=== PATIENT | female | born 1945 | race Caucasian/White ===

== ENCOUNTER 2022-09-24 06:17 | Emergency (ER) | payer MEDICARE, SELFPAY ==
[2022-09-24] VITALS (155 sets, daily range): BP systolic 72–197; BP diastolic 36–86; PULSE 40–73; RESP 11–47; TEMP 27–37.3; O2SAT 84–100; BMI 48.8
--- NOTE | 2022-09-24 07:04 | DI.RAD.S_ITS ---
PROCEDURE: XR CHEST 1V INDICATIONS: short of breath TECHNIQUE: One view of the chest was acquired. COMPARISON: None. FINDINGS: Surgical changes and devices: None. Lungs and pleura: Patchy bibasilar opacities more pronounced on the right. No focal consolidation. No pneumothorax. No substantial pleural effusion seen. Mediastinum: Mediastinal contours appear normal. Heart size is at the upper limits of normal, likely related to portable technique. Bones and chest wall: No suspicious bony lesions. Overlying soft tissues appear unremarkable. IMPRESSION: Patchy bibasilar opacities more pronounced on the right. Findings may represent atelectasis although early developing airspace disease not excluded. Dictated by: Jose Manuel Raphael M.D. on 09/24/2022 at 7:49 Approved by: Jose Manuel Raphael M.D. on 09/24/2022 at 7:51
--- NOTE | 2022-09-24 07:12 | ED_ITS ---
HPI - SOB/Dyspnea <Jonna Goyal DO - Last Filed: 09/25/22 06:59> General Chief Complaint: Shortness of Breath/Dyspnea Stated Complaint: dehydrate, SOB Time Seen by Provider: 09/24/22 06:48 Source: patient Mode of arrival: Wheelchair Limitations: no limitations History of Present Illness HPI Narrative: Patient is a 77-year-old female history of hypertension type 2 diabetes presenting today with worsening shortness of breath. She says she is had shortness of breath for about the last 6 weeks but progressively getting worse. She is found to be hypoxic. She denies fever or chills. She denies orthopnea. She reports of diarrhea off and on since . She is early weak fatigued. She does have a wheelchair at bedside but reports that she typically walks with a walker. Related Data Previous Rx's Medication Instructions Recorded methocarbamol 750 mg tablet 750 mg PO Q8H PRN muscle spasm #20 09/24/22 tabs oxycodone-acetaminophen 5 mg-325 1 tab PO Q6H PRN pain #10 tabs 09/24/22 mg tablet (Percocet) Allergies Allergy/AdvReac Type Severity Reaction Status Date / Time piroxicam [PIROXICAM] Allergy Unknown Verified 09/24/22 09:49 Sulfa (Sulfonamide Allergy Unknown Verified 09/24/22 09:49 Antibiotics) [SULFA (SULFONAMIDE ANTIBIOTICS)] sulfamethoxazole Allergy Unknown Verified 09/24/22 09:49 [From SEPTRA] trimethoprim [From SEPTRA] Allergy Unknown Verified 09/24/22 09:49 nifedipine [NIFEDIPINE] AdvReac Unknown Verified 09/24/22 09:49 tramadol [TRAMADOL] AdvReac Unknown GI UPSET, Verified 09/24/22 09:49 N/V Review of Systems <Jonna Goyal DO - Last Filed: 09/25/22 06:59> Review of Systems ROS Unobtainable: All systems reviewed & are unremarkable except as noted in HPI and below Patient History <Jonna Goyal DO - Last Filed: 09/25/22 06:59> Social History Smoking Status: Never smoker Smoking Status: Never smoker Substance Use Type: does not use Exam <Jonna Goyal DO - Last Filed: 09/25/22 06:59> Initial Vital Signs Initial Vital Signs: Vital Signs Temperature 97 F L 09/24/22 06:25 Pulse Rate 49 L 09/24/22 06:25 Respiratory Rate 22 09/24/22 06:25 Blood Pressure 102/56 L 09/24/22 06:25 Pulse Oximetry 92 09/24/22 06:25 Oxygen Delivery Method Room Air 09/24/22 06:25 GENERAL: Alert 77-year-old female appears in moderate respiratory distress HEENT: Head atraumatic,EOMI, pupils reactive, face symmetric, [moist] mucous membranes CARDIOVASCULAR: Regular rate and rhythm without murmurs, rubs or gallops. RESPIRATORY: Tachypneic decreased bilaterally ABDOMEN: Soft, nontender. Normoactive bowel sounds all 4 quadrants. No guarding or rebound. EXTREMITIES: Normal range of motion, no clubbing +2 Neurovascularly intact NEUROLOGICAL: Alert and oriented x4.Normal gait and speech. SKIN: Chronic venous stasis lower extremity <Arya Owens DO - Last Filed: 09/25/22 01:46> Initial Vital Signs Initial Vital Signs: Vital Signs Temperature 97 F L 09/24/22 06:25 Pulse Rate 49 L 09/24/22 06:25 Respiratory Rate 22 09/24/22 06:25 Blood Pressure 102/56 L 09/24/22 06:25 Pulse Oximetry 92 09/24/22 06:25 Oxygen Delivery Method Room Air 09/24/22 06:25 Procedures <Jonan Goyal DO - Last Filed: 09/25/22 06:59> Central Line Placement Right IJ: Patient Placed on Monitor/Pulse Ox: Yes MD Prep: mask, gown and gloves Central Line Prep: Povidone-Iodine 1% Local Anesthetic: lidocaine 1% Ultrasound Used for Placement: Yes Post Procedure X-Ray: no pneumothorax seen Complications: other (Unsuccessful) Left IJ: Patient Placed on Monitor/Pulse Ox: Yes MD Prep: mask, gown and gloves Central Line Prep: Chlorhexidine scrub Local Anesthetic: lidocaine 1% Amount of anesthesia used (mL): 5 Ultrasound Used for Placement: Yes Patient Tolerated Procedure: No complications Complications: other (Unsuccessful) <Arya Owens DO - Last Filed: 09/25/22 01:46> Intubation Time out performed: Yes sedative: Ketamine Mg Given: 60 paralytic: Rocuronium Mg Given: 180 Laryngoscope: other Assist Device Used: Bougie ET Tube Size: 7.5 ET Tube Uncuffed: No Tube Secured Depth (cm): 24 Tube Secured Location: teeth Tube Placement Confirmation: Visualized tube passing through cords, Equal breath sounds bilaterally, No breath sounds over epigastrium, Confirmation by capnometry and Chest Xray Patient Tolerated Procedure: Well Intubation Complications: none Course <Jonna Goyal, - Last Filed: 09/25/22 06:59> Orders Ordered: ED Orders 09/24/22 22:06 ABG [Arterial Blood Gas] Stat Discontinued Medications Atropine Sulfate (Atropine 1 Mg/10 Ml Syringe) 0.5 mg IV NOW ONE Stop: 09/25/22 01:45 Last Admin: 09/25/22 02:20 Dose: 0.5 mg Documented By: COTY Chlorhexidine Gluconate (Chlorhexidine Gluconate 15 Ml Cup) 15 ml PO Q6HR HARDEEP Furosemide (Furosemide 40 Mg/4 Ml Vial) 40 mg IV NOW ONE Stop: 09/24/22 08:03 Last Admin: 09/24/22 08:31 Dose: 40 mg Documented By: KARIME Heparin Sodium (Porcine) (Heparin Flush (Cl/Picc/Mid-Line) 50 Unit/5 Ml Syringe) 50 unit IV NOW ONE Stop: 09/24/22 07:40 Last Admin: 09/24/22 07:45 Dose: 50 unit Documented By: KARIME Heparin Sodium (Porcine) (Heparin Flush (Cl/Picc/Mid-Line) 50 Unit/5 Ml Syringe) 50 unit IV PRN PRN PRN Reason: Flush Last Admin: 09/24/22 17:30 Dose: 50 unit Documented By: Admin: 09/24/22 15:02 Dose: 50 unit Documented By: Admin: 09/24/22 15:01 Dose: 50 unit Documented By: Admin: 09/24/22 12:18 Dose: 50 unit Documented By: Admin: 09/24/22 09:46 Dose: 50 unit Documented By: Admin: 09/24/22 08:32 Dose: 50 unit Documented By: Admin: 09/24/22 08:05 Dose: 50 unit Documented By: KARIME Heparin Sodium (Porcine) (Heparin 5,000 Unit/Ml Vial) 5,000 unit IV NOW ONE Stop: 09/24/22 16:33 Last Admin: 09/24/22 17:19 Dose: 5,000 unit Documented By: KARIME Furosemide 80 mg/ Sodium (Chloride) 58 mls @ 116 mls/hr IV NOW ONE Stop: 09/24/22 09:06 Last Infusion: 09/24/22 09:46 Dose: 0 mls/hr Documented By: Admin: 09/24/22 09:12 Dose: 116 mls/hr Documented By: KARIME NOREPINEPHRINE BITARTRATE/D5W (Levophed) 4 mg in 250 mls @ 30 mls/hr IV TITRATE HARDEEP; Protocol Last Titration: 09/24/22 23:52 Dose: 6 mcg/min, 22.5 mls/hr Documented By: Titration: 09/24/22 23:19 Dose: 8 mcg/min, 30 mls/hr Documented By: Titration: 09/24/22 23:15 Dose: 10 mcg/min, 37.5 mls/hr Documented By: Titration: 09/24/22 19:35 Dose: 14 mcg/min, 52.5 mls/hr Documented By: Titration: 09/24/22 19:04 Dose: 18 mcg/min, 67.5 mls/hr Documented By: Admin: 09/24/22 18:47 Dose: 14 mcg/min, 52.5 mls/hr Documented By: Titration: 09/24/22 18:46 Dose: 0 mcg/min, 0 mls/hr Documented By: Titration: 09/24/22 18:45 Dose: 14 mcg/min, 52.5 mls/hr Documented By: Titration: 09/24/22 18:25 Dose: 14 mcg/min, 52.5 mls/hr Documented By: Titration: 09/24/22 17:30 Dose: 14 mcg/min, 52.5 mls/hr Documented By: Titration: 09/24/22 15:13 Dose: 10 mcg/min, 37.5 mls/hr Documented By: Titration: 09/24/22 12:57 Dose: 12 mcg/min, 45 mls/hr Documented By: Admin: 09/24/22 12:54 Dose: 8 mcg/min, 30 mls/hr Documented By: KLS Heparin Sodium/Dextrose (Heparin Drip) 25,000 unit in 500 mls @ 20 mls/hr IV CONT HARDEEP; Protocol Last Titration: 09/24/22 23:49 Dose: 700 units/hr, 14 mls/hr Documented By: Titration: 09/24/22 22:25 Dose: 0 units/hr, 0 mls/hr Documented By: Admin: 09/24/22 17:21 Dose: 1,000 units/hr, 20 mls/hr Documented By: KARIME Dopamine HCl/Dextrose (Dopamine 400 Mg-D5w 250 Ml) 400 mg in 250 mls @ 21.262 mls/hr IV TITRATE HARDEEP; Protocol Last Admin: 09/24/22 22:49 Dose: 5 mcg/kg/min, 21.262 mls/hr Documented By: COTY Furosemide 80 mg/ Sodium (Chloride) 58 mls @ 116 mls/hr IV NOW ONE Stop: 09/24/22 19:13 Last Infusion: 09/24/22 20:30 Dose: 0 mls/hr Documented By: Admin: 09/24/22 20:00 Dose: 116 mls/hr Documented By: DONA Ceftriaxone Sodium 1,000 mg/ (Sodium Chloride) 100 mls @ 200 mls/hr IV NOW ONE Stop: 09/24/22 19:30 Last Infusion: 09/24/22 20:43 Dose: 0 mls/hr Documented By: Admin: 09/24/22 20:10 Dose: 200 mls/hr Documented By: DONA Sodium Chloride (Normal Saline 0.9%) 500 mls @ 1,000 mls/hr IV BOLUS ONE Stop: 09/24/22 20:21 Last Infusion: 09/24/22 20:59 Dose: 0 mls/hr Documented By: Admin: 09/24/22 20:29 Dose: 1,000 mls/hr Documented By: DONA Azithromycin 500 mg/ Dextrose 250 mls @ 250 mls/hr IV NOW ONE Stop: 09/24/22 20:27 Last Infusion: 09/24/22 22:59 Dose: 0 mls/hr Documented By: Admin: 09/24/22 21:50 Dose: 250 mls/hr Documented By: COTY Magnesium Sulfate (Magnesium Sulfate) 2 gm in 50 mls @ 25 mls/hr IV NOW ONE Stop: 09/24/22 22:25 Last Infusion: 09/25/22 00:30 Dose: 0 mls/hr Documented By: COTY Co-signed By: MARIUSZ Admin: 09/24/22 22:30 Dose: 25 mls/hr Documented By: COTY Co-signed By: DEANN Propofol (Propofol) 1,000 mg in 100 mls @ 3.402 mls/hr IV TITRATE HARDEEP; Protocol Last Titration: 09/25/22 01:13 Dose: 10 mcg/kg/min, 6.804 mls/hr Documented By: Admin: 09/24/22 23:52 Dose: 5 mcg/kg/min, 3.402 mls/hr Documented By: COTY Ketamine HCl (Ketamine 500 Mg/5 Ml Inj) 60 mg IV NOW ONE Stop: 09/24/22 20:59 Last Admin: 09/24/22 21:20 Dose: 60 mg Documented By: COTY Lorazepam (Lorazepam 2 Mg/Ml Inj) 0.5 mg IV NOW ONE Stop: 09/24/22 19:27 Last Admin: 09/24/22 19:40 Dose: 0.5 mg Documented By: PEYTON Morphine Sulfate (Morphine 2 Mg/Ml Inj) 2 mg IV NOW ONE Stop: 09/24/22 11:31 Last Admin: 09/24/22 12:18 Dose: 2 mg Documented By: KARIME Morphine Sulfate (Morphine 2 Mg/Ml Inj) 2 mg IV NOW ONE Stop: 09/24/22 19:25 Last Admin: 09/24/22 19:40 Dose: 2 mg Documented By: PEYTON Morphine Sulfate (Morphine 4 Mg/Ml Inj) 4 mg IV Q4HR PRN PRN Reason: Pain, Severe (7-10) Naloxone HCl (Naloxone 0.4 Mg/Ml Vial) 0.2 mg IV Q2MIN PRN PRN Reason: Opiate Reversal Nystatin (Nystatin Powder 15gm) 1 applic TOP BID PRN PRN Reason: Rash Last Admin: 09/24/22 10:43 Dose: 1 applic Documented By: KARIME Ondansetron HCl (Ondansetron 4 Mg/2 Ml Inj) 4 mg IV Q8H PRN PRN Reason: Nausea And Vomiting Rocuronium [place] (Rocuronium 100 Mg/10 Ml Vial) 180 mg IV NOW ONE Stop: 09/24/22 20:59 Last Admin: 09/24/22 21:23 Dose: 180 mg Documented By: BS Vital Signs Vital signs: Vital Signs - 8 hr 09/24/22 23:00 09/24/22 23:00 09/24/22 23:05 Temperature 98.4 F Pulse Rate 72 Respiratory Rate 18 Blood Pressure 147/65 H 143/66 H Pulse Oximetry 94 09/24/22 23:05 09/24/22 23:35 09/24/22 23:35 Temperature 98.4 F 97.9 F Pulse Rate 72 72 Respiratory Rate 18 18 Blood Pressure 157/75 H Pulse Oximetry 93 91 09/24/22 23:40 09/24/22 23:40 09/24/22 23:45 Temperature 97.7 F Pulse Rate 73 Respiratory Rate 18 Blood Pressure 151/72 H 156/75 H Pulse Oximetry 91 09/24/22 23:45 09/24/22 23:50 09/24/22 23:50 Temperature 97.7 F 97.5 F L Pulse Rate 73 70 Respiratory Rate 18 18 Blood Pressure 140/68 Pulse Oximetry 89 L 92 09/24/22 23:55 09/24/22 23:55 09/25/22 00:00 Temperature 97.5 F L Pulse Rate 66 Respiratory Rate 18 Blood Pressure 132/63 127/62 Pulse Oximetry 92 09/25/22 00:00 09/25/22 00:05 09/25/22 00:05 Temperature 97.3 F L 97.3 F L Pulse Rate 64 62 Respiratory Rate 18 18 Blood Pressure 122/58 L Pulse Oximetry 91 91 09/25/22 00:10 09/25/22 00:10 09/25/22 00:15 Temperature 97.3 F L Pulse Rate 61 Respiratory Rate 18 Blood Pressure 122/61 119/60 Pulse Oximetry 93 09/25/22 00:15 09/25/22 00:20 09/25/22 00:20 Temperature 97.2 F L 97.2 F L Pulse Rate 63 57 L Respiratory Rate 18 18 Blood Pressure 112/56 L Pulse Oximetry 93 93 09/25/22 00:25 09/25/22 00:25 09/25/22 00:30 Temperature 97.2 F L Pulse Rate 55 L Respiratory Rate 18 Blood Pressure 110/57 L 113/57 L Pulse Oximetry 94 09/25/22 00:30 09/25/22 00:35 09/25/22 00:35 Temperature 97.2 F L 97.0 F L Pulse Rate 53 L 55 L Respiratory Rate 18 18 Blood Pressure 114/57 L Pulse Oximetry 93 93 09/25/22 00:40 09/25/22 00:40 09/25/22 00:45 Temperature 97.0 F L Pulse Rate 55 L Respiratory Rate 18 Blood Pressure 116/58 L 124/63 Pulse Oximetry 93 09/25/22 00:45 09/25/22 00:50 09/25/22 00:50 Temperature 97.0 F L 97.0 F L Pulse Rate 55 L 59 L Respiratory Rate 18 18 Blood Pressure 134/69 Pulse Oximetry 86 L 92 09/25/22 00:55 09/25/22 00:55 09/25/22 01:00 Temperature 97.0 F L Pulse Rate 61 Respiratory Rate 19 Blood Pressure 147/70 H 136/64 Pulse Oximetry 92 09/25/22 01:00 09/25/22 01:05 09/25/22 01:05 Temperature 97.0 F L 96.8 F L Pulse Rate 60 85 Respiratory Rate 18 21 Blood Pressure 168/89 H Pulse Oximetry 93 93 09/25/22 01:10 09/25/22 01:10 09/25/22 01:15 Temperature 96.8 F L Pulse Rate 64 Respiratory Rate 21 Blood Pressure 167/93 H 123/58 L Pulse Oximetry 93 09/25/22 01:15 09/25/22 01:20 09/25/22 01:20 Temperature 96.8 F L 96.8 F L Pulse Rate 62 55 L Respiratory Rate 18 18 Blood Pressure 95/52 L Pulse Oximetry 94 95 09/25/22 01:25 09/25/22 01:25 09/25/22 01:30 Temperature 96.8 F L Pulse Rate 53 L Respiratory Rate 18 Blood Pressure 89/54 L 100/57 L Pulse Oximetry 95 09/25/22 01:30 09/25/22 01:35 09/25/22 01:35 Temperature 96.8 F L 96.8 F L Pulse Rate 50 L 53 L Respiratory Rate 18 18 Blood Pressure 114/57 L Pulse Oximetry 93 91 09/25/22 01:40 09/25/22 01:41 09/25/22 01:41 Temperature 96.8 F L 96.8 F L Pulse Rate 52 L 57 L Respiratory Rate 20 27 H Blood Pressure 152/72 H Pulse Oximetry 93 93 09/25/22 01:45 09/25/22 01:46 09/25/22 01:46 Temperature 96.8 F L 96.8 F L Pulse Rate 59 L 53 L Respiratory Rate 31 H 22 Blood Pressure 179/81 H Pulse Oximetry 92 92 09/25/22 01:50 09/25/22 01:51 09/25/22 01:51 Temperature 96.8 F L 96.8 F L Pulse Rate 57 L 60 Respiratory Rate 25 H 18 Blood Pressure 183/77 H Pulse Oximetry 92 92 09/25/22 01:55 09/25/22 01:56 09/25/22 01:56 Temperature 96.8 F L 96.8 F L Pulse Rate 57 L 60 Respiratory Rate 30 H 26 H Blood Pressure 171/79 H Pulse Oximetry 92 92 09/25/22 02:00 Temperature Pulse Rate 62 Respiratory Rate Blood Pressure Pulse Oximetry 92 <Arya Owens DO - Last Filed: 09/25/22 01:46> Orders Ordered: ED Orders 09/24/22 22:06 ABG [Arterial Blood Gas] Stat Discontinued Medications Atropine Sulfate (Atropine 1 Mg/10 Ml Syringe) 0.5 mg IV NOW ONE Stop: 09/25/22 01:45 Last Admin: 09/25/22 02:20 Dose: 0.5 mg Documented By: COTY Chlorhexidine Gluconate (Chlorhexidine Gluconate 15 Ml Cup) 15 ml PO Q6HR HARDEEP Furosemide (Furosemide 40 Mg/4 Ml Vial) 40 mg IV NOW ONE Stop: 09/24/22 08:03 Last Admin: 09/24/22 08:31 Dose: 40 mg Documented By: KARIME Heparin Sodium (Porcine) (Heparin Flush (Cl/Picc/Mid-Line) 50 Unit/5 Ml Syringe) 50 unit IV NOW ONE Stop: 09/24/22 07:40 Last Admin: 09/24/22 07:45 Dose: 50 unit Documented By: KARIME Heparin Sodium (Porcine) (Heparin Flush (Cl/Picc/Mid-Line) 50 Unit/5 Ml Syringe) 50 unit IV PRN PRN PRN Reason: Flush Last Admin: 09/24/22 17:30 Dose: 50 unit Documented By: Admin: 09/24/22 15:02 Dose: 50 unit Documented By: Admin: 09/24/22 15:01 Dose: 50 unit Documented By: Admin: 09/24/22 12:18 Dose: 50 unit Documented By: Admin: 09/24/22 09:46 Dose: 50 unit Documented By: Admin: 09/24/22 08:32 Dose: 50 unit Documented By: Admin: 09/24/22 08:05 Dose: 50 unit Documented By: KARIME Heparin Sodium (Porcine) (Heparin 5,000 Unit/Ml Vial) 5,000 unit IV NOW ONE Stop: 09/24/22 16:33 Last Admin: 09/24/22 17:19 Dose: 5,000 unit Documented By: KARIME Furosemide 80 mg/ Sodium (Chloride) 58 mls @ 116 mls/hr IV NOW ONE Stop: 09/24/22 09:06 Last Infusion: 09/24/22 09:46 Dose: 0 mls/hr Documented By: Admin: 09/24/22 09:12 Dose: 116 mls/hr Documented By: KARIME NOREPINEPHRINE BITARTRATE/D5W (Levophed) 4 mg in 250 mls @ 30 mls/hr IV TITRATE HARDEEP; Protocol Last Titration: 09/24/22 23:52 Dose: 6 mcg/min, 22.5 mls/hr Documented By: Titration: 09/24/22 23:19 Dose: 8 mcg/min, 30 mls/hr Documented By: Titration: 09/24/22 23:15 Dose: 10 mcg/min, 37.5 mls/hr Documented By: Titration: 09/24/22 19:35 Dose: 14 mcg/min, 52.5 mls/hr Documented By: Titration: 09/24/22 19:04 Dose: 18 mcg/min, 67.5 mls/hr Documented By: Admin: 09/24/22 18:47 Dose: 14 mcg/min, 52.5 mls/hr Documented By: Titration: 09/24/22 18:46 Dose: 0 mcg/min, 0 mls/hr Documented By: Titration: 09/24/22 18:45 Dose: 14 mcg/min, 52.5 mls/hr Documented By: Titration: 09/24/22 18:25 Dose: 14 mcg/min, 52.5 mls/hr Documented By: Titration: 09/24/22 17:30 Dose: 14 mcg/min, 52.5 mls/hr Documented By: Titration: 09/24/22 15:13 Dose: 10 mcg/min, 37.5 mls/hr Documented By: Titration: 09/24/22 12:57 Dose: 12 mcg/min, 45 mls/hr Documented By: Admin: 09/24/22 12:54 Dose: 8 mcg/min, 30 mls/hr Documented By: ANTHONY Heparin Sodium/Dextrose (Heparin Drip) 25,000 unit in 500 mls @ 20 mls/hr IV CONT HARDEEP; Protocol Last Titration: 09/24/22 23:49 Dose: 700 units/hr, 14 mls/hr Documented By: Titration: 09/24/22 22:25 Dose: 0 units/hr, 0 mls/hr Documented By: Admin: 09/24/22 17:21 Dose: 1,000 units/hr, 20 mls/hr Documented By: KARIME Dopamine HCl/Dextrose (Dopamine 400 Mg-D5w 250 Ml) 400 mg in 250 mls @ 21.262 mls/hr IV TITRATE HARDEEP; Protocol Last Admin: 09/24/22 22:49 Dose: 5 mcg/kg/min, 21.262 mls/hr Documented By: COTY Furosemide 80 mg/ Sodium (Chloride) 58 mls @ 116 mls/hr IV NOW ONE Stop: 09/24/22 19:13 Last Infusion: 09/24/22 20:30 Dose: 0 mls/hr Documented By: Admin: 09/24/22 20:00 Dose: 116 mls/hr Documented By: DONA Ceftriaxone Sodium 1,000 mg/ (Sodium Chloride) 100 mls @ 200 mls/hr IV NOW ONE Stop: 09/24/22 19:30 Last Infusion: 09/24/22 20:43 Dose: 0 mls/hr Documented By: Admin: 09/24/22 20:10 Dose: 200 mls/hr Documented By: GC Sodium Chloride (Normal Saline 0.9%) 500 mls @ 1,000 mls/hr IV BOLUS ONE Stop: 09/24/22 20:21 Last Infusion: 09/24/22 20:59 Dose: 0 mls/hr Documented By: Admin: 09/24/22 20:29 Dose: 1,000 mls/hr Documented By: GC Azithromycin 500 mg/ Dextrose 250 mls @ 250 mls/hr IV NOW ONE Stop: 09/24/22 20:27 Last Infusion: 09/24/22 22:59 Dose: 0 mls/hr Documented By: Admin: 09/24/22 21:50 Dose: 250 mls/hr Documented By: COTY Magnesium Sulfate (Magnesium Sulfate) 2 gm in 50 mls @ 25 mls/hr IV NOW ONE Stop: 09/24/22 22:25 Last Infusion: 09/25/22 00:30 Dose: 0 mls/hr Documented By: COTY Co-signed By: CARLIEG Admin: 09/24/22 22:30 Dose: 25 mls/hr Documented By: COTY Co-signed By: DEANN Propofol (Propofol) 1,000 mg in 100 mls @ 3.402 mls/hr IV TITRATE HARDEEP; Protocol Last Titration: 09/25/22 01:13 Dose: 10 mcg/kg/min, 6.804 mls/hr Documented By: Admin: 09/24/22 23:52 Dose: 5 mcg/kg/min, 3.402 mls/hr Documented By: COTY Ketamine HCl (Ketamine 500 Mg/5 Ml Inj) 60 mg IV NOW ONE Stop: 09/24/22 20:59 Last Admin: 09/24/22 21:20 Dose: 60 mg Documented By: COTY Lorazepam (Lorazepam 2 Mg/Ml Inj) 0.5 mg IV NOW ONE Stop: 09/24/22 19:27 Last Admin: 09/24/22 19:40 Dose: 0.5 mg Documented By: PEYTON Morphine Sulfate (Morphine 2 Mg/Ml Inj) 2 mg IV NOW ONE Stop: 09/24/22 11:31 Last Admin: 09/24/22 12:18 Dose: 2 mg Documented By: KARIME Morphine Sulfate (Morphine 2 Mg/Ml Inj) 2 mg IV NOW ONE Stop: 09/24/22 19:25 Last Admin: 09/24/22 19:40 Dose: 2 mg Documented By: PEYTON Morphine Sulfate (Morphine 4 Mg/Ml Inj) 4 mg IV Q4HR PRN PRN Reason: Pain, Severe (7-10) Naloxone HCl (Naloxone 0.4 Mg/Ml Vial) 0.2 mg IV Q2MIN PRN PRN Reason: Opiate Reversal Nystatin (Nystatin Powder 15gm) 1 applic TOP BID PRN PRN Reason: Rash Last Admin: 09/24/22 10:43 Dose: 1 applic Documented By: KARIME Ondansetron HCl (Ondansetron 4 Mg/2 Ml Inj) 4 mg IV Q8H PRN PRN Reason: Nausea And Vomiting Rocuronium [place] (Rocuronium 100 Mg/10 Ml Vial) 180 mg IV NOW ONE Stop: 09/24/22 20:59 Last Admin: 09/24/22 21:23 Dose: 180 mg Documented By: COTY Vital Signs Vital signs: Vital Signs - 8 hr 09/24/22 23:00 09/24/22 23:00 09/24/22 23:05 Temperature 98.4 F Pulse Rate 72 Respiratory Rate 18 Blood Pressure 147/65 H 143/66 H Pulse Oximetry 94 09/24/22 23:05 09/24/22 23:35 09/24/22 23:35 Temperature 98.4 F 97.9 F Pulse Rate 72 72 Respiratory Rate 18 18 Blood Pressure 157/75 H Pulse Oximetry 93 91 09/24/22 23:40 09/24/22 23:40 09/24/22 23:45 Temperature 97.7 F Pulse Rate 73 Respiratory Rate 18 Blood Pressure 151/72 H 156/75 H Pulse Oximetry 91 09/24/22 23:45 09/24/22 23:50 09/24/22 23:50 Temperature 97.7 F 97.5 F L Pulse Rate 73 70 Respiratory Rate 18 18 Blood Pressure 140/68 Pulse Oximetry 89 L 92 09/24/22 23:55 09/24/22 23:55 09/25/22 00:00 Temperature 97.5 F L Pulse Rate 66 Respiratory Rate 18 Blood Pressure 132/63 127/62 Pulse Oximetry 92 09/25/22 00:00 09/25/22 00:05 09/25/22 00:05 Temperature 97.3 F L 97.3 F L Pulse Rate 64 62 Respiratory Rate 18 18 Blood Pressure 122/58 L Pulse Oximetry 91 91 09/25/22 00:10 09/25/22 00:10 09/25/22 00:15 Temperature 97.3 F L Pulse Rate 61 Respiratory Rate 18 Blood Pressure 122/61 119/60 Pulse Oximetry 93 09/25/22 00:15 09/25/22 00:20 09/25/22 00:20 Temperature 97.2 F L 97.2 F L Pulse Rate 63 57 L Respiratory Rate 18 18 Blood Pressure 112/56 L Pulse Oximetry 93 93 09/25/22 00:25 09/25/22 00:25 09/25/22 00:30 Temperature 97.2 F L Pulse Rate 55 L Respiratory Rate 18 Blood Pressure 110/57 L 113/57 L Pulse Oximetry 94 09/25/22 00:30 09/25/22 00:35 09/25/22 00:35 Temperature 97.2 F L 97.0 F L Pulse Rate 53 L 55 L Respiratory Rate 18 18 Blood Pressure 114/57 L Pulse Oximetry 93 93 09/25/22 00:40 09/25/22 00:40 09/25/22 00:45 Temperature 97.0 F L Pulse Rate 55 L Respiratory Rate 18 Blood Pressure 116/58 L 124/63 Pulse Oximetry 93 09/25/22 00:45 09/25/22 00:50 09/25/22 00:50 Temperature 97.0 F L 97.0 F L Pulse Rate 55 L 59 L Respiratory Rate 18 18 Blood Pressure 134/69 Pulse Oximetry 86 L 92 09/25/22 00:55 09/25/22 00:55 09/25/22 01:00 Temperature 97.0 F L Pulse Rate 61 Respiratory Rate 19 Blood Pressure 147/70 H 136/64 Pulse Oximetry 92 09/25/22 01:00 09/25/22 01:05 09/25/22 01:05 Temperature 97.0 F L 96.8 F L Pulse Rate 60 85 Respiratory Rate 18 21 Blood Pressure 168/89 H Pulse Oximetry 93 93 09/25/22 01:10 09/25/22 01:10 09/25/22 01:15 Temperature 96.8 F L Pulse Rate 64 Respiratory Rate 21 Blood Pressure 167/93 H 123/58 L Pulse Oximetry 93 09/25/22 01:15 09/25/22 01:20 09/25/22 01:20 Temperature 96.8 F L 96.8 F L Pulse Rate 62 55 L Respiratory Rate 18 18 Blood Pressure 95/52 L Pulse Oximetry 94 95 09/25/22 01:25 09/25/22 01:25 09/25/22 01:30 Temperature 96.8 F L Pulse Rate 53 L Respiratory Rate 18 Blood Pressure 89/54 L 100/57 L Pulse Oximetry 95 09/25/22 01:30 09/25/22 01:35 09/25/22 01:35 Temperature 96.8 F L 96.8 F L Pulse Rate 50 L 53 L Respiratory Rate 18 18 Blood Pressure 114/57 L Pulse Oximetry 93 91 09/25/22 01:40 09/25/22 01:41 09/25/22 01:41 Temperature 96.8 F L 96.8 F L Pulse Rate 52 L 57 L Respiratory Rate 20 27 H Blood Pressure 152/72 H Pulse Oximetry 93 93 09/25/22 01:45 09/25/22 01:46 09/25/22 01:46 Temperature 96.8 F L 96.8 F L Pulse Rate 59 L 53 L Respiratory Rate 31 H 22 Blood Pressure 179/81 H Pulse Oximetry 92 92 09/25/22 01:50 09/25/22 01:51 09/25/22 01:51 Temperature 96.8 F L 96.8 F L Pulse Rate 57 L 60 Respiratory Rate 25 H 18 Blood Pressure 183/77 H Pulse Oximetry 92 92 09/25/22 01:55 09/25/22 01:56 09/25/22 01:56 Temperature 96.8 F L 96.8 F L Pulse Rate 57 L 60 Respiratory Rate 30 H 26 H Blood Pressure 171/79 H Pulse Oximetry 92 92 09/25/22 02:00 Temperature Pulse Rate 62 Respiratory Rate Blood Pressure Pulse Oximetry 92 MDM - SOB/Dyspnea <Jonna Goyal, DO - Last Filed: 09/25/22 06:59> Lab Data 09/24/22 21:30 09/24/22 21:30 Labs: Lab Results 09/24/22 09/24/22 09/24/22 Range/Units 07:30 07:30 07:30 WBC 11.7 H (4.5-11.0) X10^3/uL RBC 5.64 H (4.0-5.2) X10^6/uL Hgb 14.1 (12.0-16.0) g/dL Hct 45.8 (36-46) % MCV 81.2 (80-100) fL MCH 25.1 L (26-34) PG MCHC 30.8 (30-36) % RDW 18.6 H (11.6-14.8) % Plt Count 136 L (150-400) X10^3/uL Neut % (Auto) 82.4 H (50-75) % Lymph % (Auto) 7.3 L (25-40) % [place] % (Auto) 9.5 (3-14) % Eos % (Auto) 0.3 L (2-4) % Baso % (Auto) 0.5 (0-2) % Neut # (Auto) 9600 H (6131-3303) /uL Lymph # (Auto) 900 L (9158-6462) /uL [place] # (Auto) 1100 H (0-900) /uL Eos # (Auto) 0 (0-450) /uL Baso # (Auto) 100 (0-100) /uL Total Counted Seg Neutrophils % (38-70) % Band Neutrophils % (3-7) % Lymphocytes % (Manual) (25-45) % Monocytes % (Manual) (2-11) % Neutrophils # (Manual) (2072-9342) /uL RBC Morphology Polychromasia APTT (26-36) SECONDS ABG pH (7.35-7.45) ABG pCO2 (35-45) mmHg ABG pO2 (80-100) mmHg ABG HCO3 (23-27) mmol/L ABG Total CO2 (23-27) mmol/L ABG O2 Saturation (95-100) % ABG Base Excess (-2-3) mmol/L FiO2 Sodium 137 (137-145) mmol/L Potassium 5.3 H (3.4-5.1) mmol/L Chloride 105 (98-107) mmol/L Carbon Dioxide 15 L (22-32) mmol/L BUN 113 H* (7-17) mg/dL Creatinine 4.00 H (0.52-1.04) mg/dL Estimated GFR 11 L (>60) mL/min BUN/Creatinine Ratio 28.3 H (6-22) Glucose 116 H (80-110) mg/dL Lactate 2.4 H (0.7-2.1) mmol/L Calcium 8.6 (8.4-10.2) mg/dL Magnesium (1.6-2.3) mg/dL Total Bilirubin 1.2 (0.2-1.3) mg/dL AST 67 H (14-36) IU/L ALT 54 H (<35) IU/L Alkaline Phosphatase 65 (38-126) U/L Total Creatine Kinase 145 H (30-135) U/L CK-MB (CK-2) 7.54 H (<2.37) ng/mL CK-MB (CK-2) Rel Index 5.2 H (1.5-5.0) % Troponin I 0.873 H* (0.01-0.034) ng/mL NT-Pro-B Natriuret Pep 23403 H (<450) pg/mL Total Protein 6.7 (6.3-8.2) g/dL Albumin 4.2 (3.5-5.0) g/dL Globulin 2.5 (1.7-4.1) g/dL Albumin/Globulin Ratio 1.7 (1.0-2.8) Lipase 333 H (23-300) U/L Procalcitonin 0.36 (<0.5) ng/mL Urine Color Urine Appearance Urine pH (4.5-8.0) Ur Specific [place] (1.000-1.035) Urine Protein (Negative) Urine Glucose (UA) (Negative) g/dL Urine Ketones (NEGATIVE) Urine Occult Blood (Negative) Urine Nitrate (Negative) Urine Bilirubin (NEGATIVE) Ur Bilirubin Confirm (Negative) Urine Urobilinogen (0.2) E.U./dL Ur Leukocyte Esterase (NEGATIVE) Urine RBC (0-5/HPF) Urine WBC (0-5/HPF) Ur Squamous Epith Cells (0-5/HPF) Urine Bacteria (None) Ur Culture Indicated? Chlamy pneumoniae PCR (Not Detect) Adenovirus (PCR) (Not Detect) B. pertussis DNA (PCR) (Not Detecte) B.parapertussis DNA PCR (Not Detecte) Coronavirus OC43 (PCR) (Not Detect) Coronavirus HKU1 (PCR) (Not Detect) Coronavirus 229E (PCR) (Not Detect) SARS-CoV-2 (PCR) (Not Detecte) Coronavirus NL63 (PCR) (Not Detect) Human Metapneumovir PCR (Not Detect) Influenza Type A (PCR) (Not Detect) Influenza Type B (PCR) (Not Detect) M. pneumoniae (PCR) (Not Detect) Parainfluenza 1 (PCR) (Not Detect) Parainfluenza 2 (PCR) (Not Detect) Parainfluenza 3 (PCR) (Not Detect) Parainfluenza 4 (PCR) (Not Detect) RSV (PCR) (Not Detect) Entero/Rhino (PCR) (Not Detect) 09/24/22 09/24/22 09/24/22 Range/Units 07:30 07:44 07:53 WBC (4.5-11.0) X10^3/uL RBC (4.0-5.2) X10^6/uL Hgb (12.0-16.0) g/dL Hct (36-46) % MCV (80-100) fL MCH (26-34) PG MCHC (30-36) % RDW (11.6-14.8) % Plt Count (150-400) X10^3/uL Neut % (Auto) (50-75) % Lymph % (Auto) (25-40) % [place] % (Auto) (3-14) % Eos % (Auto) (2-4) % Baso % (Auto) (0-2) % Neut # (Auto) (6585-6850) /uL Lymph # (Auto) (1080-5721) /uL [place] # (Auto) (0-900) /uL Eos # (Auto) (0-450) /uL Baso # (Auto) (0-100) /uL Total Counted Seg Neutrophils % (38-70) % Band Neutrophils % (3-7) % Lymphocytes % (Manual) (25-45) % Monocytes % (Manual) (2-11) % Neutrophils # (Manual) (8892-5059) /uL RBC Morphology Polychromasia APTT (26-36) SECONDS ABG pH 7.24 L* (7.35-7.45) ABG pCO2 31.6 L (35-45) mmHg ABG pO2 78 L (80-100) mmHg ABG HCO3 14 L (23-27) mmol/L ABG Total CO2 14 L (23-27) mmol/L ABG O2 Saturation 93 L (95-100) % ABG Base Excess -14.0 L (-2-3) mmol/L FiO2 33 Sodium (137-145) mmol/L Potassium (3.4-5.1) mmol/L Chloride (98-107) mmol/L Carbon Dioxide (22-32) mmol/L BUN (7-17) mg/dL Creatinine (0.52-1.04) mg/dL Estimated GFR (>60) mL/min BUN/Creatinine Ratio (6-22) Glucose (80-110) mg/dL Lactate (0.7-2.1) mmol/L Calcium (8.4-10.2) mg/dL Magnesium 1.1 L (1.6-2.3) mg/dL Total Bilirubin (0.2-1.3) mg/dL AST (14-36) IU/L ALT (<35) IU/L Alkaline Phosphatase (38-126) U/L Total Creatine Kinase (30-135) U/L CK-MB (CK-2) (<2.37) ng/mL CK-MB (CK-2) Rel Index (1.5-5.0) % Troponin I (0.01-0.034) ng/mL NT-Pro-B Natriuret Pep (<450) pg/mL Total Protein (6.3-8.2) g/dL Albumin (3.5-5.0) g/dL Globulin (1.7-4.1) g/dL Albumin/Globulin Ratio (1.0-2.8) Lipase (23-300) U/L Procalcitonin (<0.5) ng/mL Urine Color Urine Appearance Urine pH (4.5-8.0) Ur Specific [place] (1.000-1.035) Urine Protein (Negative) Urine Glucose (UA) (Negative) g/dL Urine Ketones (NEGATIVE) Urine Occult Blood (Negative) Urine Nitrate (Negative) Urine Bilirubin (NEGATIVE) Ur Bilirubin Confirm (Negative) Urine Urobilinogen (0.2) E.U./dL Ur Leukocyte Esterase (NEGATIVE) Urine RBC (0-5/HPF) Urine WBC (0-5/HPF) Ur Squamous Epith Cells (0-5/HPF) Urine Bacteria (None) Ur Culture Indicated? Chlamy pneumoniae PCR Not detected (Not Detect) Adenovirus (PCR) Not detected (Not Detect) B. pertussis DNA (PCR) Not detected (Not Detecte) B.parapertussis DNA PCR Not detected (Not Detecte) Coronavirus OC43 (PCR) Not detected (Not Detect) Coronavirus HKU1 (PCR) Not detected (Not Detect) Coronavirus 229E (PCR) Not detected (Not Detect) SARS-CoV-2 (PCR) Not detected (Not Detecte) Coronavirus NL63 (PCR) Not detected (Not Detect) Human Metapneumovir PCR Not detected (Not Detect) Influenza Type A (PCR) Not detected (Not Detect) Influenza Type B (PCR) Not detected (Not Detect) M. pneumoniae (PCR) Not detected (Not Detect) Parainfluenza 1 (PCR) Not detected (Not Detect) Parainfluenza 2 (PCR) Not detected (Not Detect) Parainfluenza 3 (PCR) Not detected (Not Detect) Parainfluenza 4 (PCR) Not detected (Not Detect) RSV (PCR) Not detected (Not Detect) Entero/Rhino (PCR) Not detected (Not Detect) 09/24/22 09/24/22 09/24/22 Range/Units 09:32 09:43 09:46 WBC (4.5-11.0) X10^3/uL RBC (4.0-5.2) X10^6/uL Hgb (12.0-16.0) g/dL Hct (36-46) % MCV (80-100) fL MCH (26-34) PG MCHC (30-36) % RDW (11.6-14.8) % Plt Count (150-400) X10^3/uL Neut % (Auto) (50-75) % Lymph % (Auto) (25-40) % [place] % (Auto) (3-14) % Eos % (Auto) (2-4) % Baso % (Auto) (0-2) % Neut # (Auto) (2960-9151) /uL Lymph # (Auto) (9738-0177) /uL [place] # (Auto) (0-900) /uL Eos # (Auto) (0-450) /uL Baso # (Auto) (0-100) /uL Total Counted Seg Neutrophils % (38-70) % Band Neutrophils % (3-7) % Lymphocytes % (Manual) (25-45) % Monocytes % (Manual) (2-11) % Neutrophils # (Manual) (6273-5021) /uL RBC Morphology Polychromasia APTT (26-36) SECONDS ABG pH (7.35-7.45) ABG pCO2 (35-45) mmHg ABG pO2 (80-100) mmHg ABG HCO3 (23-27) mmol/L ABG Total CO2 (23-27) mmol/L ABG O2 Saturation (95-100) % ABG Base Excess (-2-3) mmol/L FiO2 Sodium 138 (137-145) mmol/L Potassium 5.0 (3.4-5.1) mmol/L Chloride 108 H (98-107) mmol/L Carbon Dioxide 14 L (22-32) mmol/L BUN 110 H* (7-17) mg/dL Creatinine 3.74 H (0.52-1.04) mg/dL Estimated GFR 12 L (>60) mL/min BUN/Creatinine Ratio 29.4 H (6-22) Glucose 103 (80-110) mg/dL Lactate 1.4 (0.7-2.1) mmol/L Calcium 7.7 L (8.4-10.2) mg/dL Magnesium (1.6-2.3) mg/dL Total Bilirubin (0.2-1.3) mg/dL AST (14-36) IU/L ALT (<35) IU/L Alkaline Phosphatase (38-126) U/L Total Creatine Kinase 123 (30-135) U/L CK-MB (CK-2) 6.58 H (<2.37) ng/mL CK-MB (CK-2) Rel Index 5.3 H (1.5-5.0) % Troponin I 0.763 H* (0.01-0.034) ng/mL NT-Pro-B Natriuret Pep (<450) pg/mL Total Protein (6.3-8.2) g/dL Albumin (3.5-5.0) g/dL Globulin (1.7-4.1) g/dL Albumin/Globulin Ratio (1.0-2.8) Lipase (23-300) U/L Procalcitonin (<0.5) ng/mL Urine Color Yellow Urine Appearance Cloudy Urine pH 5.0 (4.5-8.0) Ur Specific [place] >=1.030 H (1.000-1.035) Urine Protein 3+ H (Negative) Urine Glucose (UA) Negative (Negative) g/dL Urine Ketones Trace H (NEGATIVE) Urine Occult Blood 3+ H (Negative) Urine Nitrate Negative (Negative) Urine Bilirubin 1+ H (NEGATIVE) Ur Bilirubin Confirm Negative (Negative) Urine Urobilinogen 1.0 (0.2) E.U./dL Ur Leukocyte Esterase 2+ H (NEGATIVE) Urine RBC 0-1/hpf (0-5/HPF) Urine WBC 30-100/hpf H (0-5/HPF) Ur Squamous Epith Cells 5-10 /hpf H (0-5/HPF) Urine Bacteria Moderate (10-30) H (None) Ur Culture Indicated? Specimen cultured Chlamy pneumoniae PCR (Not Detect) Adenovirus (PCR) (Not Detect) B. pertussis DNA (PCR) (Not Detecte) B.parapertussis DNA PCR (Not Detecte) Coronavirus OC43 (PCR) (Not Detect) Coronavirus HKU1 (PCR) (Not Detect) Coronavirus 229E (PCR) (Not Detect) SARS-CoV-2 (PCR) (Not Detecte) Coronavirus NL63 (PCR) (Not Detect) Human Metapneumovir PCR (Not Detect) Influenza Type A (PCR) (Not Detect) Influenza Type B (PCR) (Not Detect) M. pneumoniae (PCR) (Not Detect) Parainfluenza 1 (PCR) (Not Detect) Parainfluenza 2 (PCR) (Not Detect) Parainfluenza 3 (PCR) (Not Detect) Parainfluenza 4 (PCR) (Not Detect) RSV (PCR) (Not Detect) Entero/Rhino (PCR) (Not Detect) 09/24/22 09/24/22 09/24/22 Range/Units 15:00 15:00 17:05 WBC (4.5-11.0) X10^3/uL RBC (4.0-5.2) X10^6/uL Hgb (12.0-16.0) g/dL Hct (36-46) % MCV (80-100) fL MCH (26-34) PG MCHC (30-36) % RDW (11.6-14.8) % Plt Count (150-400) X10^3/uL Neut % (Auto) (50-75) % Lymph % (Auto) (25-40) % [place] % (Auto) (3-14) % Eos % (Auto) (2-4) % Baso % (Auto) (0-2) % Neut # (Auto) (4548-8611) /uL Lymph # (Auto) (4700-4196) /uL [place] # (Auto) (0-900) /uL Eos # (Auto) (0-450) /uL Baso # (Auto) (0-100) /uL Total Counted Seg Neutrophils % (38-70) % Band Neutrophils % (3-7) % Lymphocytes % (Manual) (25-45) % Monocytes % (Manual) (2-11) % Neutrophils # (Manual) (9921-4922) /uL RBC Morphology Polychromasia APTT 31 (26-36) SECONDS ABG pH (7.35-7.45) ABG pCO2 (35-45) mmHg ABG pO2 (80-100) mmHg ABG HCO3 (23-27) mmol/L ABG Total CO2 (23-27) mmol/L ABG O2 Saturation (95-100) % ABG Base Excess (-2-3) mmol/L FiO2 Sodium 137 (137-145) mmol/L Potassium 5.4 H (3.4-5.1) mmol/L Chloride 106 (98-107) mmol/L Carbon Dioxide 15 L (22-32) mmol/L BUN 116 H* (7-17) mg/dL Creatinine 4.05 H (0.52-1.04) mg/dL Estimated GFR 11 L (>60) mL/min BUN/Creatinine Ratio 28.6 H (6-22) Glucose 121 H (80-110) mg/dL Lactate (0.7-2.1) mmol/L Calcium 8.5 (8.4-10.2) mg/dL Magnesium (1.6-2.3) mg/dL Total Bilirubin (0.2-1.3) mg/dL AST (14-36) IU/L ALT (<35) IU/L Alkaline Phosphatase (38-126) U/L Total Creatine Kinase (30-135) U/L CK-MB (CK-2) (<2.37) ng/mL CK-MB (CK-2) Rel Index (1.5-5.0) % Troponin I 1.030 H* (0.01-0.034) ng/mL NT-Pro-B Natriuret Pep (<450) pg/mL Total Protein (6.3-8.2) g/dL Albumin (3.5-5.0) g/dL Globulin (1.7-4.1) g/dL Albumin/Globulin Ratio (1.0-2.8) Lipase (23-300) U/L Procalcitonin 0.40 (<0.5) ng/mL Urine Color Urine Appearance Urine pH (4.5-8.0) Ur Specific [place] (1.000-1.035) Urine Protein (Negative) Urine Glucose (UA) (Negative) g/dL Urine Ketones (NEGATIVE) Urine Occult Blood (Negative) Urine Nitrate (Negative) Urine Bilirubin (NEGATIVE) Ur Bilirubin Confirm (Negative) Urine Urobilinogen (0.2) E.U./dL Ur Leukocyte Esterase (NEGATIVE) Urine RBC (0-5/HPF) Urine WBC (0-5/HPF) Ur Squamous Epith Cells (0-5/HPF) Urine Bacteria (None) Ur Culture Indicated? Chlamy pneumoniae PCR (Not Detect) Adenovirus (PCR) (Not Detect) B. pertussis DNA (PCR) (Not Detecte) B.parapertussis DNA PCR (Not Detecte) Coronavirus OC43 (PCR) (Not Detect) Coronavirus HKU1 (PCR) (Not Detect) Coronavirus 229E (PCR) (Not Detect) SARS-CoV-2 (PCR) (Not Detecte) Coronavirus NL63 (PCR) (Not Detect) Human Metapneumovir PCR (Not Detect) Influenza Type A (PCR) (Not Detect) Influenza Type B (PCR) (Not Detect) M. pneumoniae (PCR) (Not Detect) Parainfluenza 1 (PCR) (Not Detect) Parainfluenza 2 (PCR) (Not Detect) Parainfluenza 3 (PCR) (Not Detect) Parainfluenza 4 (PCR) (Not Detect) RSV (PCR) (Not Detect) Entero/Rhino (PCR) (Not Detect) 09/24/22 09/24/22 09/24/22 Range/Units 19:45 21:30 21:30 WBC (4.5-11.0) X10^3/uL RBC (4.0-5.2) X10^6/uL Hgb (12.0-16.0) g/dL Hct (36-46) % MCV (80-100) fL MCH (26-34) PG MCHC (30-36) % RDW (11.6-14.8) % Plt Count (150-400) X10^3/uL Neut % (Auto) (50-75) % Lymph % (Auto) (25-40) % [place] % (Auto) (3-14) % Eos % (Auto) (2-4) % Baso % (Auto) (0-2) % Neut # (Auto) (2892-2632) /uL Lymph # (Auto) (9291-3877) /uL [place] # (Auto) (0-900) /uL Eos # (Auto) (0-450) /uL Baso # (Auto) (0-100) /uL Total Counted Seg Neutrophils % (38-70) % Band Neutrophils % (3-7) % Lymphocytes % (Manual) (25-45) % Monocytes % (Manual) (2-11) % Neutrophils # (Manual) (3550-6274) /uL RBC Morphology Polychromasia APTT 130 H* D (26-36) SECONDS ABG pH 7.16 L* (7.35-7.45) ABG pCO2 40.2 (35-45) mmHg ABG pO2 143 H (80-100) mmHg ABG HCO3 14 L (23-27) mmol/L ABG Total CO2 16 L (23-27) mmol/L ABG O2 Saturation 98 (95-100) % ABG Base Excess -14.0 L (-2-3) mmol/L FiO2 50 Sodium Cancelled (137-145) mmol/L Potassium Cancelled (3.4-5.1) mmol/L Chloride Cancelled (98-107) mmol/L Carbon Dioxide Cancelled (22-32) mmol/L BUN Cancelled (7-17) mg/dL Creatinine Cancelled (0.52-1.04) mg/dL Estimated GFR Cancelled (>60) mL/min BUN/Creatinine Ratio Cancelled (6-22) Glucose Cancelled (80-110) mg/dL Lactate (0.7-2.1) mmol/L Calcium Cancelled (8.4-10.2) mg/dL Magnesium (1.6-2.3) mg/dL Total Bilirubin Cancelled (0.2-1.3) mg/dL AST Cancelled (14-36) IU/L ALT Cancelled (<35) IU/L Alkaline Phosphatase Cancelled (38-126) U/L Total Creatine Kinase (30-135) U/L CK-MB (CK-2) (<2.37) ng/mL CK-MB (CK-2) Rel Index (1.5-5.0) % Troponin I (0.01-0.034) ng/mL NT-Pro-B Natriuret Pep 11452 H (<450) pg/mL Total Protein Cancelled (6.3-8.2) g/dL Albumin Cancelled (3.5-5.0) g/dL Globulin Cancelled (1.7-4.1) g/dL Albumin/Globulin Ratio Cancelled (1.0-2.8) Lipase (23-300) U/L Procalcitonin (<0.5) ng/mL Urine Color Urine Appearance Urine pH (4.5-8.0) Ur Specific [place] (1.000-1.035) Urine Protein (Negative) Urine Glucose (UA) (Negative) g/dL Urine Ketones (NEGATIVE) Urine Occult Blood (Negative) Urine Nitrate (Negative) Urine Bilirubin (NEGATIVE) Ur Bilirubin Confirm (Negative) Urine Urobilinogen (0.2) E.U./dL Ur Leukocyte Esterase (NEGATIVE) Urine RBC (0-5/HPF) Urine WBC (0-5/HPF) Ur Squamous Epith Cells (0-5/HPF) Urine Bacteria (None) Ur Culture Indicated? Chlamy pneumoniae PCR (Not Detect) Adenovirus (PCR) (Not Detect) B. pertussis DNA (PCR) (Not Detecte) B.parapertussis DNA PCR (Not Detecte) Coronavirus OC43 (PCR) (Not Detect) Coronavirus HKU1 (PCR) (Not Detect) Coronavirus 229E (PCR) (Not Detect) SARS-CoV-2 (PCR) (Not Detecte) Coronavirus NL63 (PCR) (Not Detect) Human Metapneumovir PCR (Not Detect) Influenza Type A (PCR) (Not Detect) Influenza Type B (PCR) (Not Detect) M. pneumoniae (PCR) (Not Detect) Parainfluenza 1 (PCR) (Not Detect) Parainfluenza 2 (PCR) (Not Detect) Parainfluenza 3 (PCR) (Not Detect) Parainfluenza 4 (PCR) (Not Detect) RSV (PCR) (Not Detect) Entero/Rhino (PCR) (Not Detect) 09/24/22 09/24/22 09/24/22 Range/Units 21:30 21:30 21:30 WBC 14.1 H (4.5-11.0) X10^3/uL RBC 5.83 H (4.0-5.2) X10^6/uL Hgb 14.6 (12.0-16.0) g/dL Hct 47.2 H (36-46) % MCV 81.0 (80-100) fL MCH 25.0 L (26-34) PG MCHC 30.9 (30-36) % RDW 18.4 H (11.6-14.8) % Plt Count 138 L (150-400) X10^3/uL Neut % (Auto) Not Reportable (50-75) % Lymph % (Auto) Not Reportable (25-40) % [place] % (Auto) Not Reportable (3-14) % Eos % (Auto) Not Reportable (2-4) % Baso % (Auto) Not Reportable (0-2) % Neut # (Auto) (4896-5925) /uL Lymph # (Auto) Not Reportable (8007-6535) /uL [place] # (Auto) Not Reportable (0-900) /uL Eos # (Auto) (0-450) /uL Baso # (Auto) Not Reportable (0-100) /uL Total Counted 100 Seg Neutrophils % 82.0 H (38-70) % Band Neutrophils % 3.0 (3-7) % Lymphocytes % (Manual) 5.0 L (25-45) % Monocytes % (Manual) 10.0 (2-11) % Neutrophils # (Manual) 67237 H (7218-0298) /uL RBC Morphology See below Polychromasia 1+ H APTT (26-36) SECONDS ABG pH (7.35-7.45) ABG pCO2 (35-45) mmHg ABG pO2 (80-100) mmHg ABG HCO3 (23-27) mmol/L ABG Total CO2 (23-27) mmol/L ABG O2 Saturation (95-100) % ABG Base Excess (-2-3) mmol/L FiO2 Sodium 137 (137-145) mmol/L Potassium 5.4 H (3.4-5.1) mmol/L Chloride 105 (98-107) mmol/L Carbon Dioxide 13 L (22-32) mmol/L BUN 114 H* (7-17) mg/dL Creatinine 4.06 H (0.52-1.04) mg/dL Estimated GFR 11 L (>60) mL/min BUN/Creatinine Ratio 28.1 H (6-22) Glucose 165 H (80-110) mg/dL Lactate 1.3 (0.7-2.1) mmol/L Calcium 8.2 L (8.4-10.2) mg/dL Magnesium (1.6-2.3) mg/dL Total Bilirubin 1.0 (0.2-1.3) mg/dL AST 113 H (14-36) IU/L ALT 110 H (<35) IU/L Alkaline Phosphatase 73 (38-126) U/L Total Creatine Kinase 93 (30-135) U/L CK-MB (CK-2) TNP (<2.37) ng/mL CK-MB (CK-2) Rel Index TNP (1.5-5.0) % Troponin I 0.909 H* (0.01-0.034) ng/mL NT-Pro-B Natriuret Pep (<450) pg/mL Total Protein 6.6 (6.3-8.2) g/dL Albumin 4.1 (3.5-5.0) g/dL Globulin 2.5 (1.7-4.1) g/dL Albumin/Globulin Ratio 1.6 (1.0-2.8) Lipase (23-300) U/L Procalcitonin (<0.5) ng/mL Urine Color Urine Appearance Urine pH (4.5-8.0) Ur Specific [place] (1.000-1.035) Urine Protein (Negative) Urine Glucose (UA) (Negative) g/dL Urine Ketones (NEGATIVE) Urine Occult Blood (Negative) Urine Nitrate (Negative) Urine Bilirubin (NEGATIVE) Ur Bilirubin Confirm (Negative) Urine Urobilinogen (0.2) E.U./dL Ur Leukocyte Esterase (NEGATIVE) Urine RBC (0-5/HPF) Urine WBC (0-5/HPF) Ur Squamous Epith Cells (0-5/HPF) Urine Bacteria (None) Ur Culture Indicated? Chlamy pneumoniae PCR (Not Detect) Adenovirus (PCR) (Not Detect) B. pertussis DNA (PCR) (Not Detecte) B.parapertussis DNA PCR (Not Detecte) Coronavirus OC43 (PCR) (Not Detect) Coronavirus HKU1 (PCR) (Not Detect) Coronavirus 229E (PCR) (Not Detect) SARS-CoV-2 (PCR) (Not Detecte) Coronavirus NL63 (PCR) (Not Detect) Human Metapneumovir PCR (Not Detect) Influenza Type A (PCR) (Not Detect) Influenza Type B (PCR) (Not Detect) M. pneumoniae (PCR) (Not Detect) Parainfluenza 1 (PCR) (Not Detect) Parainfluenza 2 (PCR) (Not Detect) Parainfluenza 3 (PCR) (Not Detect) Parainfluenza 4 (PCR) (Not Detect) RSV (PCR) (Not Detect) Entero/Rhino (PCR) (Not Detect) 09/24/22 Range/Units 22:06 WBC (4.5-11.0) X10^3/uL RBC (4.0-5.2) X10^6/uL Hgb (12.0-16.0) g/dL Hct (36-46) % MCV (80-100) fL MCH (26-34) PG MCHC (30-36) % RDW (11.6-14.8) % Plt Count (150-400) X10^3/uL Neut % (Auto) (50-75) % Lymph % (Auto) (25-40) % [place] % (Auto) (3-14) % Eos % (Auto) (2-4) % Baso % (Auto) (0-2) % Neut # (Auto) (4868-1334) /uL Lymph # (Auto) (4847-0080) /uL [place] # (Auto) (0-900) /uL Eos # (Auto) (0-450) /uL Baso # (Auto) (0-100) /uL Total Counted Seg Neutrophils % (38-70) % Band Neutrophils % (3-7) % Lymphocytes % (Manual) (25-45) % Monocytes % (Manual) (2-11) % Neutrophils # (Manual) (4693-6440) /uL RBC Morphology Polychromasia APTT (26-36) SECONDS ABG pH 7.11 L* (7.35-7.45) ABG pCO2 51.1 H (35-45) mmHg ABG pO2 191 H (80-100) mmHg ABG HCO3 16 L (23-27) mmol/L ABG Total CO2 18 L (23-27) mmol/L ABG O2 Saturation 99 (95-100) % ABG Base Excess -13.0 L (-2-3) mmol/L FiO2 100 Sodium (137-145) mmol/L Potassium (3.4-5.1) mmol/L Chloride (98-107) mmol/L Carbon Dioxide (22-32) mmol/L BUN (7-17) mg/dL Creatinine (0.52-1.04) mg/dL Estimated GFR (>60) mL/min BUN/Creatinine Ratio (6-22) Glucose (80-110) mg/dL Lactate (0.7-2.1) mmol/L Calcium (8.4-10.2) mg/dL Magnesium (1.6-2.3) mg/dL Total Bilirubin (0.2-1.3) mg/dL AST (14-36) IU/L ALT (<35) IU/L Alkaline Phosphatase (38-126) U/L Total Creatine Kinase (30-135) U/L CK-MB (CK-2) (<2.37) ng/mL CK-MB (CK-2) Rel Index (1.5-5.0) % Troponin I (0.01-0.034) ng/mL NT-Pro-B Natriuret Pep (<450) pg/mL Total Protein (6.3-8.2) g/dL Albumin (3.5-5.0) g/dL Globulin (1.7-4.1) g/dL Albumin/Globulin Ratio (1.0-2.8) Lipase (23-300) U/L Procalcitonin (<0.5) ng/mL Urine Color Urine Appearance Urine pH (4.5-8.0) Ur Specific [place] (1.000-1.035) Urine Protein (Negative) Urine Glucose (UA) (Negative) g/dL Urine Ketones (NEGATIVE) Urine Occult Blood (Negative) Urine Nitrate (Negative) Urine Bilirubin (NEGATIVE) Ur Bilirubin Confirm (Negative) Urine Urobilinogen (0.2) E.U./dL Ur Leukocyte Esterase (NEGATIVE) Urine RBC (0-5/HPF) Urine WBC (0-5/HPF) Ur Squamous Epith Cells (0-5/HPF) Urine Bacteria (None) Ur Culture Indicated? Chlamy pneumoniae PCR (Not Detect) Adenovirus (PCR) (Not Detect) B. pertussis DNA (PCR) (Not Detecte) B.parapertussis DNA PCR (Not Detecte) Coronavirus OC43 (PCR) (Not Detect) Coronavirus HKU1 (PCR) (Not Detect) Coronavirus 229E (PCR) (Not Detect) SARS-CoV-2 (PCR) (Not Detecte) Coronavirus NL63 (PCR) (Not Detect) Human Metapneumovir PCR (Not Detect) Influenza Type A (PCR) (Not Detect) Influenza Type B (PCR) (Not Detect) M. pneumoniae (PCR) (Not Detect) Parainfluenza 1 (PCR) (Not Detect) Parainfluenza 2 (PCR) (Not Detect) Parainfluenza 3 (PCR) (Not Detect) Parainfluenza 4 (PCR) (Not Detect) RSV (PCR) (Not Detect) Entero/Rhino (PCR) (Not Detect) Imaging Data Chest x-ray: Radiologist's Impression: PROCEDURE:? XR CHEST 1V ? INDICATIONS:? short of breath ? TECHNIQUE:? One view of the chest was acquired.? ? COMPARISON:? None. ? FINDINGS:? ? Surgical changes and devices:? None.? ? Lungs and pleura:? Patchy bibasilar opacities more pronounced on the right.? No focal consolidation.? No pneumothorax.? No substantial pleural effusion seen. ? Mediastinum:? Mediastinal contours appear normal.? Heart size is at the upper limits of normal, likely related to portable technique.? ? Bones and chest wall:? No suspicious bony lesions.? Overlying soft tissues gustabo ear unremarkable.? ? IMPRESSION:? Patchy bibasilar opacities more pronounced on the right.? Findings may represent atelectasis although early developing airspace disease not excluded. ? ? Dictated by: Jose Manuel Raphael M.D. on 09/24/2022 at 7:49 ? ? CXR 2: Radiologist's Impression: PROCEDURE:? XR CHEST 1V ? INDICATIONS:? central line attempt ? TECHNIQUE:? One view of the chest was acquired.? ? COMPARISON:? [facility], CR, XR CHEST 1V, 09/24/2022, 7:12. ? FINDINGS:? ? Surgical changes and devices:? None.? ? Lungs and pleura:? Lungs are mildly edematous.? No pleural effusions or pneumothorax.? ? Mediastinum:? Mediastinal contours appear normal.? Heart size is globally enlarged.? ? Bones and chest wall:? No suspicious bony lesions.? Overlying soft tissues appear unremarkable.? ? IMPRESSION:? A central line is not seen, no pneumothorax is present.? Global cardiomegaly and what appears to be mild acute exacerbation of chronic CHF. ? ? Dictated by: Dany Turner M.D. on 09/24/2022 at 14:14 ?? CXR 3: Radiologist's Impression: PROCEDURE:? XR CHEST FOR PICC 1V ? INDICATIONS:? line placement ? COMPARISON:? [facility], CR, XR CHEST 1V, 09/24/2022, 13:47.? [facility], CR, XR CHEST 1V, 09/24/2022, 7:12. ? FINDINGS:? PICC was placed by the intravenous therapy team from the right side.? Fluoroscopic spot film demonstrates the tip of PICC projecting to the area of the distal SVC.? ? IMPRESSION:? Tip of PICC projects to the area of the distal SVC.? ? ? Dictated by: Dany Turner M.D. on 09/24/2022 at 15:00 ? ? ECG Data Interpretation: Sinus bradycardia rate 47 W[place] interval 148 QRS [address] changes MDM Narrative Medical decision making narrative: Patient 77-year-old female morbidly obese, presenting today with increasing shortness of breath. She is found to have congestive heart failure with BNP greater than 26,000 renal failure with creatinine of 4.0 and troponin of 0.8. She immediately was put on high-flow nasal cannula she seemed to be breathing better with that she is given 40 mg of Lasix she did not respond to and 80 mg of Lasix. Blood cultures urine culture pending. She does appear to have some leukocytes in her urine and bacteria she is given 1 dose of Rocephin. 9:15 Dr. Sanderson consulted in regards to congestive heart failure renal failure and elevated troponin. Difficult to say if troponin is elevated secondary to acute kidney injury versus cardiac event. Recommends transferring to higher level of care. I spoke with patient in regards to goals of care and intubation. At this time she would like full treatment and intubated if needed. Multiple hospitals called for transfer significant critical shortage During patient's stay in the emergency department she develops hypotension she is started on Levophed. Bilateral ICAs were attempted but unsuccessful second claire to body habitus, PICC line placed. Attempted central line placement failed secondary to body habitus however PICC line was placed. Escalating doses of Levophed. Respiratory took her off high-flow nasal cannula to give her a break however her mental status decreased continuing high doses of Levophed dopamine ordered. She has very little urine output. Repeat ABG shows worsening acidosis pH is 7.1 C 0 and 08/25/2042. She is placed on BiPAP to help with diuresis and possible mental status. She is also given morphine and Ativan for severe agitation there is no evidence of severe hypoxia. She is on a heparin drip for elevated troponin. Troponin continues to rise secondary to cardiac event versus acute kidney injury known. Possible sepsis versus cardiogenic shock, thought to be more of a cardiogenic shock she has had slow progression of worsening shortness of breath over the last 6 weeks. No significant leukocytosis initial lactate was surprisingly 1.4 procalcitonin Patient is signed out to Dr. Owens for further care. Hopeful to transfer to [facility]. <Arya Owens, - Last Filed: 09/25/22 01:46> Lab Data Labs: Lab Results 09/24/22 09/24/22 09/24/22 Range/Units 07:30 07:30 07:30 WBC 11.7 H (4.5-11.0) X10^3/uL RBC 5.64 H (4.0-5.2) X10^6/uL Hgb 14.1 (12.0-16.0) g/dL Hct 45.8 (36-46) % MCV 81.2 (80-100) fL MCH 25.1 L (26-34) PG MCHC 30.8 (30-36) % RDW 18.6 H (11.6-14.8) % Plt Count 136 L (150-400) X10^3/uL Neut % (Auto) 82.4 H (50-75) % Lymph % (Auto) 7.3 L (25-40) % [place] % (Auto) 9.5 (3-14) % Eos % (Auto) 0.3 L (2-4) % Baso % (Auto) 0.5 (0-2) % Neut # (Auto) 9600 H (7762-3366) /uL Lymph # (Auto) 900 L (0255-4873) /uL [place] # (Auto) 1100 H (0-900) /uL Eos # (Auto) 0 (0-450) /uL Baso # (Auto) 100 (0-100) /uL Total Counted Seg Neutrophils % (38-70) % Band Neutrophils % (3-7) % Lymphocytes % (Manual) (25-45) % Monocytes % (Manual) (2-11) % Neutrophils # (Manual) (8992-2361) /uL RBC Morphology Polychromasia APTT (26-36) SECONDS ABG pH (7.35-7.45) ABG pCO2 (35-45) mmHg ABG pO2 (80-100) mmHg ABG HCO3 (23-27) mmol/L ABG Total CO2 (23-27) mmol/L ABG O2 Saturation (95-100) % ABG Base Excess (-2-3) mmol/L FiO2 Sodium 137 (137-145) mmol/L Potassium 5.3 H (3.4-5.1) mmol/L Chloride 105 (98-107) mmol/L Carbon Dioxide 15 L (22-32) mmol/L BUN 113 H* (7-17) mg/dL Creatinine 4.00 H (0.52-1.04) mg/dL Estimated GFR 11 L (>60) mL/min BUN/Creatinine Ratio 28.3 H (6-22) Glucose 116 H (80-110) mg/dL Lactate 2.4 H (0.7-2.1) mmol/L Calcium 8.6 (8.4-10.2) mg/dL Magnesium (1.6-2.3) mg/dL Total Bilirubin 1.2 (0.2-1.3) mg/dL AST 67 H (14-36) IU/L ALT 54 H (<35) IU/L Alkaline Phosphatase 65 (38-126) U/L Total Creatine Kinase 145 H (30-135) U/L CK-MB (CK-2) 7.54 H (<2.37) ng/mL CK-MB (CK-2) Rel Index 5.2 H (1.5-5.0) % Troponin I 0.873 H* (0.01-0.034) ng/mL NT-Pro-B Natriuret Pep 97885 H (<450) pg/mL Total Protein 6.7 (6.3-8.2) g/dL Albumin 4.2 (3.5-5.0) g/dL Globulin 2.5 (1.7-4.1) g/dL Albumin/Globulin Ratio 1.7 (1.0-2.8) Lipase 333 H (23-300) U/L Procalcitonin 0.36 (<0.5) ng/mL Urine Color Urine Appearance Urine pH (4.5-8.0) Ur Specific [place] (1.000-1.035) Urine Protein (Negative) Urine Glucose (UA) (Negative) g/dL Urine Ketones (NEGATIVE) Urine Occult Blood (Negative) Urine Nitrate (Negative) Urine Bilirubin (NEGATIVE) Ur Bilirubin Confirm (Negative) Urine Urobilinogen (0.2) E.U./dL Ur Leukocyte Esterase (NEGATIVE) Urine RBC (0-5/HPF) Urine WBC (0-5/HPF) Ur Squamous Epith Cells (0-5/HPF) Urine Bacteria (None) Ur Culture Indicated? Chlamy pneumoniae PCR (Not Detect) Adenovirus (PCR) (Not Detect) B. pertussis DNA (PCR) (Not Detecte) B.parapertussis DNA PCR (Not Detecte) Coronavirus OC43 (PCR) (Not Detect) Coronavirus HKU1 (PCR) (Not Detect) Coronavirus 229E (PCR) (Not Detect) SARS-CoV-2 (PCR) (Not Detecte) Coronavirus NL63 (PCR) (Not Detect) Human Metapneumovir PCR (Not Detect) Influenza Type A (PCR) (Not Detect) Influenza Type B (PCR) (Not Detect) M. pneumoniae (PCR) (Not Detect) Parainfluenza 1 (PCR) (Not Detect) Parainfluenza 2 (PCR) (Not Detect) Parainfluenza 3 (PCR) (Not Detect) Parainfluenza 4 (PCR) (Not Detect) RSV (PCR) (Not Detect) Entero/Rhino (PCR) (Not Detect) 09/24/22 09/24/22 09/24/22 Range/Units 07:30 07:44 07:53 WBC (4.5-11.0) X10^3/uL RBC (4.0-5.2) X10^6/uL Hgb (12.0-16.0) g/dL Hct (36-46) % MCV (80-100) fL MCH (26-34) PG MCHC (30-36) % RDW (11.6-14.8) % Plt Count (150-400) X10^3/uL Neut % (Auto) (50-75) % Lymph % (Auto) (25-40) % [place] % (Auto) (3-14) % Eos % (Auto) (2-4) % Baso % (Auto) (0-2) % Neut # (Auto) (6165-2446) /uL Lymph # (Auto) (9196-9870) /uL [place] # (Auto) (0-900) /uL Eos # (Auto) (0-450) /uL Baso # (Auto) (0-100) /uL Total Counted Seg Neutrophils % (38-70) % Band Neutrophils % (3-7) % Lymphocytes % (Manual) (25-45) % Monocytes % (Manual) (2-11) % Neutrophils # (Manual) (6664-2560) /uL RBC Morphology Polychromasia APTT (26-36) SECONDS ABG pH 7.24 L* (7.35-7.45) ABG pCO2 31.6 L (35-45) mmHg ABG pO2 78 L (80-100) mmHg ABG HCO3 14 L (23-27) mmol/L ABG Total CO2 14 L (23-27) mmol/L ABG O2 Saturation 93 L (95-100) % ABG Base Excess -14.0 L (-2-3) mmol/L FiO2 33 Sodium (137-145) mmol/L Potassium (3.4-5.1) mmol/L Chloride (98-107) mmol/L Carbon Dioxide (22-32) mmol/L BUN (7-17) mg/dL Creatinine (0.52-1.04) mg/dL Estimated GFR (>60) mL/min BUN/Creatinine Ratio (6-22) Glucose (80-110) mg/dL Lactate (0.7-2.1) mmol/L Calcium (8.4-10.2) mg/dL Magnesium 1.1 L (1.6-2.3) mg/dL Total Bilirubin (0.2-1.3) mg/dL AST (14-36) IU/L ALT (<35) IU/L Alkaline Phosphatase (38-126) U/L Total Creatine Kinase (30-135) U/L CK-MB (CK-2) (<2.37) ng/mL CK-MB (CK-2) Rel Index (1.5-5.0) % Troponin I (0.01-0.034) ng/mL NT-Pro-B Natriuret Pep (<450) pg/mL Total Protein (6.3-8.2) g/dL Albumin (3.5-5.0) g/dL Globulin (1.7-4.1) g/dL Albumin/Globulin Ratio (1.0-2.8) Lipase (23-300) U/L Procalcitonin (<0.5) ng/mL Urine Color Urine Appearance Urine pH (4.5-8.0) Ur Specific [place] (1.000-1.035) Urine Protein (Negative) Urine Glucose (UA) (Negative) g/dL Urine Ketones (NEGATIVE) Urine Occult Blood (Negative) Urine Nitrate (Negative) Urine Bilirubin (NEGATIVE) Ur Bilirubin Confirm (Negative) Urine Urobilinogen (0.2) E.U./dL Ur Leukocyte Esterase (NEGATIVE) Urine RBC (0-5/HPF) Urine WBC (0-5/HPF) Ur Squamous Epith Cells (0-5/HPF) Urine Bacteria (None) Ur Culture Indicated? Chlamy pneumoniae PCR Not detected (Not Detect) Adenovirus (PCR) Not detected (Not Detect) B. pertussis DNA (PCR) Not detected (Not Detecte) B.parapertussis DNA PCR Not detected (Not Detecte) Coronavirus OC43 (PCR) Not detected (Not Detect) Coronavirus HKU1 (PCR) Not detected (Not Detect) Coronavirus 229E (PCR) Not detected (Not Detect) SARS-CoV-2 (PCR) Not detected (Not Detecte) Coronavirus NL63 (PCR) Not detected (Not Detect) Human Metapneumovir PCR Not detected (Not Detect) Influenza Type A (PCR) Not detected (Not Detect) Influenza Type B (PCR) Not detected (Not Detect) M. pneumoniae (PCR) Not detected (Not Detect) Parainfluenza 1 (PCR) Not detected (Not Detect) Parainfluenza 2 (PCR) Not detected (Not Detect) Parainfluenza 3 (PCR) Not detected (Not Detect) Parainfluenza 4 (PCR) Not detected (Not Detect) RSV (PCR) Not detected (Not Detect) Entero/Rhino (PCR) Not detected (Not Detect) 09/24/22 09/24/22 09/24/22 Range/Units 09:32 09:43 09:46 WBC (4.5-11.0) X10^3/uL RBC (4.0-5.2) X10^6/uL Hgb (12.0-16.0) g/dL Hct (36-46) % MCV (80-100) fL MCH (26-34) PG MCHC (30-36) % RDW (11.6-14.8) % Plt Count (150-400) X10^3/uL Neut % (Auto) (50-75) % Lymph % (Auto) (25-40) % [place] % (Auto) (3-14) % Eos % (Auto) (2-4) % Baso % (Auto) (0-2) % Neut # (Auto) (3668-7833) /uL Lymph # (Auto) (6644-1901) /uL [place] # (Auto) (0-900) /uL Eos # (Auto) (0-450) /uL Baso # (Auto) (0-100) /uL Total Counted Seg Neutrophils % (38-70) % Band Neutrophils % (3-7) % Lymphocytes % (Manual) (25-45) % Monocytes % (Manual) (2-11) % Neutrophils # (Manual) (1488-2221) /uL RBC Morphology Polychromasia APTT (26-36) SECONDS ABG pH (7.35-7.45) ABG pCO2 (35-45) mmHg ABG pO2 (80-100) mmHg ABG HCO3 (23-27) mmol/L ABG Total CO2 (23-27) mmol/L ABG O2 Saturation (95-100) % ABG Base Excess (-2-3) mmol/L FiO2 Sodium 138 (137-145) mmol/L Potassium 5.0 (3.4-5.1) mmol/L Chloride 108 H (98-107) mmol/L Carbon Dioxide 14 L (22-32) mmol/L BUN 110 H* (7-17) mg/dL Creatinine 3.74 H (0.52-1.04) mg/dL Estimated GFR 12 L (>60) mL/min BUN/Creatinine Ratio 29.4 H (6-22) Glucose 103 (80-110) mg/dL Lactate 1.4 (0.7-2.1) mmol/L Calcium 7.7 L (8.4-10.2) mg/dL Magnesium (1.6-2.3) mg/dL Total Bilirubin (0.2-1.3) mg/dL AST (14-36) IU/L ALT (<35) IU/L Alkaline Phosphatase (38-126) U/L Total Creatine Kinase 123 (30-135) U/L CK-MB (CK-2) 6.58 H (<2.37) ng/mL CK-MB (CK-2) Rel Index 5.3 H (1.5-5.0) % Troponin I 0.763 H* (0.01-0.034) ng/mL NT-Pro-B Natriuret Pep (<450) pg/mL Total Protein (6.3-8.2) g/dL Albumin (3.5-5.0) g/dL Globulin (1.7-4.1) g/dL Albumin/Globulin Ratio (1.0-2.8) Lipase (23-300) U/L Procalcitonin (<0.5) ng/mL Urine Color Yellow Urine Appearance Cloudy Urine pH 5.0 (4.5-8.0) Ur Specific [place] >=1.030 H (1.000-1.035) Urine Protein 3+ H (Negative) Urine Glucose (UA) Negative (Negative) g/dL Urine Ketones Trace H (NEGATIVE) Urine Occult Blood 3+ H (Negative) Urine Nitrate Negative (Negative) Urine Bilirubin 1+ H (NEGATIVE) Ur Bilirubin Confirm Negative (Negative) Urine Urobilinogen 1.0 (0.2) E.U./dL Ur Leukocyte Esterase 2+ H (NEGATIVE) Urine RBC 0-1/hpf (0-5/HPF) Urine WBC 30-100/hpf H (0-5/HPF) Ur Squamous Epith Cells 5-10 /hpf H (0-5/HPF) Urine Bacteria Moderate (10-30) H (None) Ur Culture Indicated? Specimen cultured Chlamy pneumoniae PCR (Not Detect) Adenovirus (PCR) (Not Detect) B. pertussis DNA (PCR) (Not Detecte) B.parapertussis DNA PCR (Not Detecte) Coronavirus OC43 (PCR) (Not Detect) Coronavirus HKU1 (PCR) (Not Detect) Coronavirus 229E (PCR) (Not Detect) SARS-CoV-2 (PCR) (Not Detecte) Coronavirus NL63 (PCR) (Not Detect) Human Metapneumovir PCR (Not Detect) Influenza Type A (PCR) (Not Detect) Influenza Type B (PCR) (Not Detect) M. pneumoniae (PCR) (Not Detect) Parainfluenza 1 (PCR) (Not Detect) Parainfluenza 2 (PCR) (Not Detect) Parainfluenza 3 (PCR) (Not Detect) Parainfluenza 4 (PCR) (Not Detect) RSV (PCR) (Not Detect) Entero/Rhino (PCR) (Not Detect) 09/24/22 09/24/22 09/24/22 Range/Units 15:00 15:00 17:05 WBC (4.5-11.0) X10^3/uL RBC (4.0-5.2) X10^6/uL Hgb (12.0-16.0) g/dL Hct (36-46) % MCV (80-100) fL MCH (26-34) PG MCHC (30-36) % RDW (11.6-14.8) % Plt Count (150-400) X10^3/uL Neut % (Auto) (50-75) % Lymph % (Auto) (25-40) % [place] % (Auto) (3-14) % Eos % (Auto) (2-4) % Baso % (Auto) (0-2) % Neut # (Auto) (7897-4602) /uL Lymph # (Auto) (8480-0912) /uL [place] # (Auto) (0-900) /uL Eos # (Auto) (0-450) /uL Baso # (Auto) (0-100) /uL Total Counted Seg Neutrophils % (38-70) % Band Neutrophils % (3-7) % Lymphocytes % (Manual) (25-45) % Monocytes % (Manual) (2-11) % Neutrophils # (Manual) (0950-3787) /uL RBC Morphology Polychromasia APTT 31 (26-36) SECONDS ABG pH (7.35-7.45) ABG pCO2 (35-45) mmHg ABG pO2 (80-100) mmHg ABG HCO3 (23-27) mmol/L ABG Total CO2 (23-27) mmol/L ABG O2 Saturation (95-100) % ABG Base Excess (-2-3) mmol/L FiO2 Sodium 137 (137-145) mmol/L Potassium 5.4 H (3.4-5.1) mmol/L Chloride 106 (98-107) mmol/L Carbon Dioxide 15 L (22-32) mmol/L BUN 116 H* (7-17) mg/dL Creatinine 4.05 H (0.52-1.04) mg/dL Estimated GFR 11 L (>60) mL/min BUN/Creatinine Ratio 28.6 H (6-22) Glucose 121 H (80-110) mg/dL Lactate (0.7-2.1) mmol/L Calcium 8.5 (8.4-10.2) mg/dL Magnesium (1.6-2.3) mg/dL Total Bilirubin (0.2-1.3) mg/dL AST (14-36) IU/L ALT (<35) IU/L Alkaline Phosphatase (38-126) U/L Total Creatine Kinase (30-135) U/L CK-MB (CK-2) (<2.37) ng/mL CK-MB (CK-2) Rel Index (1.5-5.0) % Troponin I 1.030 H* (0.01-0.034) ng/mL NT-Pro-B Natriuret Pep (<450) pg/mL Total Protein (6.3-8.2) g/dL Albumin (3.5-5.0) g/dL Globulin (1.7-4.1) g/dL Albumin/Globulin Ratio (1.0-2.8) Lipase (23-300) U/L Procalcitonin 0.40 (<0.5) ng/mL Urine Color Urine Appearance Urine pH (4.5-8.0) Ur Specific [place] (1.000-1.035) Urine Protein (Negative) Urine Glucose (UA) (Negative) g/dL Urine Ketones (NEGATIVE) Urine Occult Blood (Negative) Urine Nitrate (Negative) Urine Bilirubin (NEGATIVE) Ur Bilirubin Confirm (Negative) Urine Urobilinogen (0.2) E.U./dL Ur Leukocyte Esterase (NEGATIVE) Urine RBC (0-5/HPF) Urine WBC (0-5/HPF) Ur Squamous Epith Cells (0-5/HPF) Urine Bacteria (None) Ur Culture Indicated? Chlamy pneumoniae PCR (Not Detect) Adenovirus (PCR) (Not Detect) B. pertussis DNA (PCR) (Not Detecte) B.parapertussis DNA PCR (Not Detecte) Coronavirus OC43 (PCR) (Not Detect) Coronavirus HKU1 (PCR) (Not Detect) Coronavirus 229E (PCR) (Not Detect) SARS-CoV-2 (PCR) (Not Detecte) Coronavirus NL63 (PCR) (Not Detect) Human Metapneumovir PCR (Not Detect) Influenza Type A (PCR) (Not Detect) Influenza Type B (PCR) (Not Detect) M. pneumoniae (PCR) (Not Detect) Parainfluenza 1 (PCR) (Not Detect) Parainfluenza 2 (PCR) (Not Detect) Parainfluenza 3 (PCR) (Not Detect) Parainfluenza 4 (PCR) (Not Detect) RSV (PCR) (Not Detect) Entero/Rhino (PCR) (Not Detect) 09/24/22 09/24/22 09/24/22 Range/Units 19:45 21:30 21:30 WBC (4.5-11.0) X10^3/uL RBC (4.0-5.2) X10^6/uL Hgb (12.0-16.0) g/dL Hct (36-46) % MCV (80-100) fL MCH (26-34) PG MCHC (30-36) % RDW (11.6-14.8) % Plt Count (150-400) X10^3/uL Neut % (Auto) (50-75) % Lymph % (Auto) (25-40) % [place] % (Auto) (3-14) % Eos % (Auto) (2-4) % Baso % (Auto) (0-2) % Neut # (Auto) (8316-2173) /uL Lymph # (Auto) (8370-3006) /uL [place] # (Auto) (0-900) /uL Eos # (Auto) (0-450) /uL Baso # (Auto) (0-100) /uL Total Counted Seg Neutrophils % (38-70) % Band Neutrophils % (3-7) % Lymphocytes % (Manual) (25-45) % Monocytes % (Manual) (2-11) % Neutrophils # (Manual) (5621-1222) /uL RBC Morphology Polychromasia APTT 130 H* D (26-36) SECONDS ABG pH 7.16 L* (7.35-7.45) ABG pCO2 40.2 (35-45) mmHg ABG pO2 143 H (80-100) mmHg ABG HCO3 14 L (23-27) mmol/L ABG Total CO2 16 L (23-27) mmol/L ABG O2 Saturation 98 (95-100) % ABG Base Excess -14.0 L (-2-3) mmol/L FiO2 50 Sodium Cancelled (137-145) mmol/L Potassium Cancelled (3.4-5.1) mmol/L Chloride Cancelled (98-107) mmol/L Carbon Dioxide Cancelled (22-32) mmol/L BUN Cancelled (7-17) mg/dL Creatinine Cancelled (0.52-1.04) mg/dL Estimated GFR Cancelled (>60) mL/min BUN/Creatinine Ratio Cancelled (6-22) Glucose Cancelled (80-110) mg/dL Lactate (0.7-2.1) mmol/L Calcium Cancelled (8.4-10.2) mg/dL Magnesium (1.6-2.3) mg/dL Total Bilirubin Cancelled (0.2-1.3) mg/dL AST Cancelled (14-36) IU/L ALT Cancelled (<35) IU/L Alkaline Phosphatase Cancelled (38-126) U/L Total Creatine Kinase (30-135) U/L CK-MB (CK-2) (<2.37) ng/mL CK-MB (CK-2) Rel Index (1.5-5.0) % Troponin I (0.01-0.034) ng/mL NT-Pro-B Natriuret Pep 57336 H (<450) pg/mL Total Protein Cancelled (6.3-8.2) g/dL Albumin Cancelled (3.5-5.0) g/dL Globulin Cancelled (1.7-4.1) g/dL Albumin/Globulin Ratio Cancelled (1.0-2.8) Lipase (23-300) U/L Procalcitonin (<0.5) ng/mL Urine Color Urine Appearance Urine pH (4.5-8.0) Ur Specific [place] (1.000-1.035) Urine Protein (Negative) Urine Glucose (UA) (Negative) g/dL Urine Ketones (NEGATIVE) Urine Occult Blood (Negative) Urine Nitrate (Negative) Urine Bilirubin (NEGATIVE) Ur Bilirubin Confirm (Negative) Urine Urobilinogen (0.2) E.U./dL Ur Leukocyte Esterase (NEGATIVE) Urine RBC (0-5/HPF) Urine WBC (0-5/HPF) Ur Squamous Epith Cells (0-5/HPF) Urine Bacteria (None) Ur Culture Indicated? Chlamy pneumoniae PCR (Not Detect) Adenovirus (PCR) (Not Detect) B. pertussis DNA (PCR) (Not Detecte) B.parapertussis DNA PCR (Not Detecte) Coronavirus OC43 (PCR) (Not Detect) Coronavirus HKU1 (PCR) (Not Detect) Coronavirus 229E (PCR) (Not Detect) SARS-CoV-2 (PCR) (Not Detecte) Coronavirus NL63 (PCR) (Not Detect) Human Metapneumovir PCR (Not Detect) Influenza Type A (PCR) (Not Detect) Influenza Type B (PCR) (Not Detect) M. pneumoniae (PCR) (Not Detect) Parainfluenza 1 (PCR) (Not Detect) Parainfluenza 2 (PCR) (Not Detect) Parainfluenza 3 (PCR) (Not Detect) Parainfluenza 4 (PCR) (Not Detect) RSV (PCR) (Not Detect) Entero/Rhino (PCR) (Not Detect) 09/24/22 09/24/22 09/24/22 Range/Units 21:30 21:30 21:30 WBC 14.1 H (4.5-11.0) X10^3/uL RBC 5.83 H (4.0-5.2) X10^6/uL Hgb 14.6 (12.0-16.0) g/dL Hct 47.2 H (36-46) % MCV 81.0 (80-100) fL MCH 25.0 L (26-34) PG MCHC 30.9 (30-36) % RDW 18.4 H (11.6-14.8) % Plt Count 138 L (150-400) X10^3/uL Neut % (Auto) Not Reportable (50-75) % Lymph % (Auto) Not Reportable (25-40) % [place] % (Auto) Not Reportable (3-14) % Eos % (Auto) Not Reportable (2-4) % Baso % (Auto) Not Reportable (0-2) % Neut # (Auto) (1165-8448) /uL Lymph # (Auto) Not Reportable (8370-6353) /uL [place] # (Auto) Not Reportable (0-900) /uL Eos # (Auto) (0-450) /uL Baso # (Auto) Not Reportable (0-100) /uL Total Counted 100 Seg Neutrophils % 82.0 H (38-70) % Band Neutrophils % 3.0 (3-7) % Lymphocytes % (Manual) 5.0 L (25-45) % Monocytes % (Manual) 10.0 (2-11) % Neutrophils # (Manual) 47790 H (6839-9249) /uL RBC Morphology See below Polychromasia 1+ H APTT (26-36) SECONDS ABG pH (7.35-7.45) ABG pCO2 (35-45) mmHg ABG pO2 (80-100) mmHg ABG HCO3 (23-27) mmol/L ABG Total CO2 (23-27) mmol/L ABG O2 Saturation (95-100) % ABG Base Excess (-2-3) mmol/L FiO2 Sodium 137 (137-145) mmol/L Potassium 5.4 H (3.4-5.1) mmol/L Chloride 105 (98-107) mmol/L Carbon Dioxide 13 L (22-32) mmol/L BUN 114 H* (7-17) mg/dL Creatinine 4.06 H (0.52-1.04) mg/dL Estimated GFR 11 L (>60) mL/min BUN/Creatinine Ratio 28.1 H (6-22) Glucose 165 H (80-110) mg/dL Lactate 1.3 (0.7-2.1) mmol/L Calcium 8.2 L (8.4-10.2) mg/dL Magnesium (1.6-2.3) mg/dL Total Bilirubin 1.0 (0.2-1.3) mg/dL AST 113 H (14-36) IU/L ALT 110 H (<35) IU/L Alkaline Phosphatase 73 (38-126) U/L Total Creatine Kinase 93 (30-135) U/L CK-MB (CK-2) TNP (<2.37) ng/mL CK-MB (CK-2) Rel Index TNP (1.5-5.0) % Troponin I 0.909 H* (0.01-0.034) ng/mL NT-Pro-B Natriuret Pep (<450) pg/mL Total Protein 6.6 (6.3-8.2) g/dL Albumin 4.1 (3.5-5.0) g/dL Globulin 2.5 (1.7-4.1) g/dL Albumin/Globulin Ratio 1.6 (1.0-2.8) Lipase (23-300) U/L Procalcitonin (<0.5) ng/mL Urine Color Urine Appearance Urine pH (4.5-8.0) Ur Specific [place] (1.000-1.035) Urine Protein (Negative) Urine Glucose (UA) (Negative) g/dL Urine Ketones (NEGATIVE) Urine Occult Blood (Negative) Urine Nitrate (Negative) Urine Bilirubin (NEGATIVE) Ur Bilirubin Confirm (Negative) Urine Urobilinogen (0.2) E.U./dL Ur Leukocyte Esterase (NEGATIVE) Urine RBC (0-5/HPF) Urine WBC (0-5/HPF) Ur Squamous Epith Cells (0-5/HPF) Urine Bacteria (None) Ur Culture Indicated? Chlamy pneumoniae PCR (Not Detect) Adenovirus (PCR) (Not Detect) B. pertussis DNA (PCR) (Not Detecte) B.parapertussis DNA PCR (Not Detecte) Coronavirus OC43 (PCR) (Not Detect) Coronavirus HKU1 (PCR) (Not Detect) Coronavirus 229E (PCR) (Not Detect) SARS-CoV-2 (PCR) (Not Detecte) Coronavirus NL63 (PCR) (Not Detect) Human Metapneumovir PCR (Not Detect) Influenza Type A (PCR) (Not Detect) Influenza Type B (PCR) (Not Detect) M. pneumoniae (PCR) (Not Detect) Parainfluenza 1 (PCR) (Not Detect) Parainfluenza 2 (PCR) (Not Detect) Parainfluenza 3 (PCR) (Not Detect) Parainfluenza 4 (PCR) (Not Detect) RSV (PCR) (Not Detect) Entero/Rhino (PCR) (Not Detect) 09/24/22 Range/Units 22:06 WBC (4.5-11.0) X10^3/uL RBC (4.0-5.2) X10^6/uL Hgb (12.0-16.0) g/dL Hct (36-46) % MCV (80-100) fL MCH (26-34) PG MCHC (30-36) % RDW (11.6-14.8) % Plt Count (150-400) X10^3/uL Neut % (Auto) (50-75) % Lymph % (Auto) (25-40) % [place] % (Auto) (3-14) % Eos % (Auto) (2-4) % Baso % (Auto) (0-2) % Neut # (Auto) (7215-4276) /uL Lymph # (Auto) (8336-0608) /uL [place] # (Auto) (0-900) /uL Eos # (Auto) (0-450) /uL Baso # (Auto) (0-100) /uL Total Counted Seg Neutrophils % (38-70) % Band Neutrophils % (3-7) % Lymphocytes % (Manual) (25-45) % Monocytes % (Manual) (2-11) % Neutrophils # (Manual) (8133-7764) /uL RBC Morphology Polychromasia APTT (26-36) SECONDS ABG pH 7.11 L* (7.35-7.45) ABG pCO2 51.1 H (35-45) mmHg ABG pO2 191 H (80-100) mmHg ABG HCO3 16 L (23-27) mmol/L ABG Total CO2 18 L (23-27) mmol/L ABG O2 Saturation 99 (95-100) % ABG Base Excess -13.0 L (-2-3) mmol/L FiO2 100 Sodium (137-145) mmol/L Potassium (3.4-5.1) mmol/L Chloride (98-107) mmol/L Carbon Dioxide (22-32) mmol/L BUN (7-17) mg/dL Creatinine (0.52-1.04) mg/dL Estimated GFR (>60) mL/min BUN/Creatinine Ratio (6-22) Glucose (80-110) mg/dL Lactate (0.7-2.1) mmol/L Calcium (8.4-10.2) mg/dL Magnesium (1.6-2.3) mg/dL Total Bilirubin (0.2-1.3) mg/dL AST (14-36) IU/L ALT (<35) IU/L Alkaline Phosphatase (38-126) U/L Total Creatine Kinase (30-135) U/L CK-MB (CK-2) (<2.37) ng/mL CK-MB (CK-2) Rel Index (1.5-5.0) % Troponin I (0.01-0.034) ng/mL NT-Pro-B Natriuret Pep (<450) pg/mL Total Protein (6.3-8.2) g/dL Albumin (3.5-5.0) g/dL Globulin (1.7-4.1) g/dL Albumin/Globulin Ratio (1.0-2.8) Lipase (23-300) U/L Procalcitonin (<0.5) ng/mL Urine Color Urine Appearance Urine pH (4.5-8.0) Ur Specific [place] (1.000-1.035) Urine Protein (Negative) Urine Glucose (UA) (Negative) g/dL Urine Ketones (NEGATIVE) Urine Occult Blood (Negative) Urine Nitrate (Negative) Urine Bilirubin (NEGATIVE) Ur Bilirubin Confirm (Negative) Urine Urobilinogen (0.2) E.U./dL Ur Leukocyte Esterase (NEGATIVE) Urine RBC (0-5/HPF) Urine WBC (0-5/HPF) Ur Squamous Epith Cells (0-5/HPF) Urine Bacteria (None) Ur Culture Indicated? Chlamy pneumoniae PCR (Not Detect) Adenovirus (PCR) (Not Detect) B. pertussis DNA (PCR) (Not Detecte) B.parapertussis DNA PCR (Not Detecte) Coronavirus OC43 (PCR) (Not Detect) Coronavirus HKU1 (PCR) (Not Detect) Coronavirus 229E (PCR) (Not Detect) SARS-CoV-2 (PCR) (Not Detecte) Coronavirus NL63 (PCR) (Not Detect) Human Metapneumovir PCR (Not Detect) Influenza Type A (PCR) (Not Detect) Influenza Type B (PCR) (Not Detect) M. pneumoniae (PCR) (Not Detect) Parainfluenza 1 (PCR) (Not Detect) Parainfluenza 2 (PCR) (Not Detect) Parainfluenza 3 (PCR) (Not Detect) Parainfluenza 4 (PCR) (Not Detect) RSV (PCR) (Not Detect) Entero/Rhino (PCR) (Not Detect) MDM Narrative Medical decision making narrative: Patient 77-year-old female morbidly obese, presenting today with increasing shortness of breath. She is found to have congestive heart failure with BNP greater than 26,000 renal failure with creatinine of 4.0 and troponin of 0.8. She immediately was put on high-flow nasal cannula she seemed to be breathing better with that she is given 40 mg of Lasix she did not respond to and 80 mg of Lasix. Blood cultures urine culture pending. She does appear to have some leukocytes in her urine and bacteria she is given 1 dose of Rocephin. 9:15 Dr. Sanderson consulted in regards to congestive heart failure renal failure and elevated troponin. Difficult to say if troponin is elevated secondary to acute kidney injury versus cardiac event. Recommends transferring to [facility]. I spoke with patient in regards to goals of care and intubation. At this time she would like full treatment and intubated if needed. Multiple hospitals called for transfer significant critical shortage During patient's stay in the emergency department she develops hypotension she is started on Levophed. Bilateral ICAs were attempted but unsuccessful secondary to body habitus, PICC line placed. Attempted central line placement failed secondary to body habitus however PICC line was placed. Escalating doses of Levophed. Respiratory took her off high-flow nasal cannula to give her a break however her mental status decreased continuing high doses of Levophed dopamine ordered. She has very little urine output. Repeat ABG shows worsening acidosis pH is 7.1 C 0240 and 08/25/2042. She is placed on BiPAP to help with diuresis and possible mental status. She is also given morphine and Ativan for severe agitation there is no evidence of severe hypoxia. She is on a heparin drip for elevated troponin. Troponin continues to rise secondary to cardiac event versus acute kidney injury known. Possible sepsis versus cardiogenic shock, thought to be more of a cardiogenic shock she has had slow progression of worsening shortness of breath over the last 6 weeks. No significant leukocytosis initial lactate was surprisingly 1.4 procalcitonin Patient is signed out to Dr. Owens for further care. Hopeful to transfer to [facility]. [1900] (Roman) Patient received in sign out from [Jay Jay]. I have reviewed the clinical course and performed an independent history and physical exam. 2030 -call from [facility] discussed the case, happy to accept patient 2114 -patient no longer tolerating BiPAP, she is pulling at the mass, increased work of breathing, we have elected to move the patient into Trauma 1 for intubation. Anticipate difficult intubation given hi LEMON score. RSI medication dosing altered given low CO. Ketamine 0.5mg/kg and Ankit 1.6mg/kg (meds pushed at 2125) 7.5 Initial vent settings. Patient had been at 16-18 on BiPap. Rate 18 Vt 400 (9mL/kg with IBW 46kg) PEEP 5 FiO2 100% Levo at 14 0130 - patient becoming a bit bradycardic to the mid 50s with occurences in the upper 40s. ALS transport here. Increasing Dopamine for continued chronotropic /inotropic support Critical Care Time <Jonna Goyal, DO - Last Filed: 09/25/22 06:59> Critical Care Time Critical Care Time: Yes Total Critical Care Time: 80 Attestation: The high probability of a clinically significant, sudden or life threatening deterioration of the [cardiovascular] system(s) required my full and direct attention, intervention and personal management. The aggregate critical care time was 80 minutes. This time is in addition to time spent performing reported procedures but includes the following: [x] Data Review and interpretation [x] Patient assessment and monitoring of vital signs [x] Documentation [x] Medication orders and management Discharge Plan Departure Patient Disposition: [facility] Clinical Impression: Congestive heart failure, Cardiogenic shock, Elevated troponin, Acute UTI, Sepsis, Acute renal failure Prescriptions: New methocarbamol 750 mg tablet 750 mg PO Q8H PRN (Reason: muscle spasm) Qty: 20 0RF oxycodone-acetaminophen [Percocet] 5-325 mg tablet 1 tab PO Q6H PRN (Reason: pain) Qty: 10 0RF Stand Alone Forms: Patient Portal/API
--- NOTE | 2022-09-24 07:30 | PC.NURSE ---
DI nurse at [facility] to attempt placement of iv, unable to obtain iv or labs yet x 2 attempts. RT to come get abg for BIPAP as soon as line placement completed.
[2022-09-24 07:49] LABS: Add Manual Diff / Slide Review NO; Basophils Absolute Auto 100 /uL (0-100); Basophils Percent Auto 0.5 % (0-2); Eosinophils Absolute Auto 0 /uL (0-450); Eosinophils Percent Auto 0.3 % (2-4); Hematocrit 45.8 % (36-46); Hemoglobin 14.1 g/dL (12.0-16.0); Lymphocytes Absolute Auto 900 /uL (1100-4500); Lymphocytes Percent Auto 7.3 % (25-40); Mean Corpuscular HGB Conc 30.8 % (30-36); Mean Corpuscular Hemoglobin 25.1 PG (26-34); Mean Corpuscular Volume 81.2 fL (80-100); Monocytes Absolute Auto 1100 /uL (0-900); Monocytes Percent Auto 9.5 % (3-14); Neutrophils Absolute Auto 9600 /uL (1500-7000); Neutrophils Percent Auto 82.4 % (50-75); Platelet Count 136 X10^3/uL (150-400); Red Blood Cell Count 5.64 X10^6/uL (4.0-5.2); Red Cell Distribution Width 18.6 % (11.6-14.8); White Blood Cell Count 11.7 X10^3/uL (4.5-11.0)
[2022-09-24 08:00] LABS: Alanine Aminotransferase 54 IU/L (<35); Albumin 4.2 g/dL (3.5-5.0); Albumin Globulin Ratio 1.7 (1.0-2.8); Alkaline Phosphatase 65 U/L (38-126); Aspartate Aminotransferase 67 IU/L (14-36); BUN Creatinine Ratio 28.3 (6-22); Bilirubin Total 1.2 mg/dL (0.2-1.3); Calcium 8.6 mg/dL (8.4-10.2); Carbon Dioxide 15 mmol/L (22-32); Chloride 105 mmol/L (98-107); Creatine Kinase 145 U/L (30-135); Estimated Glomerular Filt Rate 11 mL/min (>60); Globulin 2.5 g/dL (1.7-4.1); Glucose 116 mg/dL (80-110); HEMOLYSIS < 15 (0-50); Lipase 333 U/L (23-300); Potassium 5.3 mmol/L (3.4-5.1); Sodium 137 mmol/L (137-145); Total Protein 6.7 g/dL (6.3-8.2)
[2022-09-24 08:01] LABS: Lactate (Lactic Acid) 2.4 mmol/L (0.7-2.1); Magnesium 1.1 mg/dL (1.6-2.3)
[2022-09-24 08:02] LABS: Blood Urea Nitrogen 113 mg/dL (7-17)
[2022-09-24 08:12] LABS: NT-proBNP (BNP-Adult 18+) 26800 pg/mL (<450)
[2022-09-24 08:13] LABS: Troponin I 0.873 ng/mL (0.01-0.034)
[2022-09-24 08:14] LABS: PCO2 ABG 31.6 mmHg (35-45); PO2 ABG 78 mmHg (80-100); pH ABG 7.24 (7.35-7.45)
[2022-09-24 08:15] LABS: Fractionated Inspired Oxygen 33; HCO3 ABG 14 mmol/L (23-27); Oxygen Saturation ABG 93 % (95-100); TCO2 ABG 14 mmol/L (23-27)
[2022-09-24 08:15] LABS: CKMB % Relative Index 5.2 % (1.5-5.0); Creatine Kinase MB 7.54 ng/mL (<2.37)
[2022-09-24 08:17] LABS: Procalcitonin 0.36 ng/mL (<0.5)
[2022-09-24] MEDS: FUROSEMIDE 40 MG/4 ML VIAL IV (08:31)
[2022-09-24 09:05] LABS: Adenovirus Not Detected (Not Detect); B. parapertussis Not Detected (Not Detecte); Bordetella pertussis Not Detected (Not Detecte); Chlamydophila pneumoniae Not Detected (Not Detect); Coronavirus 229E Not Detected (Not Detect); Coronavirus HKU1 Not Detected (Not Detect); Coronavirus NL 63 Not Detected (Not Detect); Coronavirus OC43 Not Detected (Not Detect); Human Metapneumovirus Not Detected (Not Detect); Human Rhinovirus/Enterovirus Not Detected (Not Detect); Influenza A Not Detected (Not Detect); Influenza B Not Detected (Not Detect); Mycoplasma pneumoniae Not Detected (Not Detect); Parainfluenza Virus 1 Not Detected (Not Detect); Parainfluenza Virus 2 Not Detected (Not Detect); Parainfluenza Virus 3 Not Detected (Not Detect); Parainfluenza Virus 4 Not Detected (Not Detect); Respiratory Syncytial Virus Not Detected (Not Detect); SARS- CoV-2 Not Detected (Not Detecte)
[2022-09-24] MEDS: FUROSEMIDE 80 MG in SODIUM CHLORIDE 0.9% 50 ML 116 MG IV ×2 (09:12→20:00)
[2022-09-24 09:46] LABS: Reflexed Lactate in 2 Hours Y
[2022-09-24 09:47] LABS: Appearance Urine UA CLOUDY; Bilirubin Urine UA 1+ (NEGATIVE); Color Urine UA YELLOW; Glucose Urine UA NEGATIVE (Negative); Ketones Urine UA TRACE (NEGATIVE); Leukocyte Esterase Urine UA 2+ (NEGATIVE); Nitrite Urine UA NEGATIVE (Negative); Occult Blood Urine UA 3+ (Negative); Protein Urine UA 3+ (Negative); Specific Gravity Urine UA >=1.030 (1.000-1.035)
[2022-09-24 09:54] LABS: Bacteria Urine Moderate (10-30); Culture Indicated Urine Specimen Cultured; Ictotest Urine Negative (Negative); RBC Urine 0-1/HPF (0-5/HPF); Squamous Epithelial Cell Urine 5-10 /HPF (0-5/HPF); WBC Urine 30-100/HPF (0-5/HPF)
[2022-09-24 10:02] LABS: Chloride 108 mmol/L (98-107); HEMOLYSIS 16 (0-50)
[2022-09-24 10:11] LABS: Lactate 2HR (Lactic Acid Rflx) 1.4 mmol/L (0.7-2.1)
[2022-09-24 10:13] LABS: BUN Creatinine Ratio 29.4 (6-22); Calcium 7.7 mg/dL (8.4-10.2); Carbon Dioxide 14 mmol/L (22-32); Creatine Kinase 123 U/L (30-135); Estimated Glomerular Filt Rate 12 mL/min (>60); Glucose 103 mg/dL (80-110); Sodium 138 mmol/L (137-145)
[2022-09-24 10:16] LABS: Blood Urea Nitrogen 110 mg/dL (7-17); Troponin I 0.763 ng/mL (0.01-0.034)
[2022-09-24 10:28] LABS: CKMB % Relative Index 5.3 % (1.5-5.0); Creatine Kinase MB 6.58 ng/mL (<2.37)
[2022-09-24] MEDS: NYSTATIN POWDER 15GM 1 APPLIC TOP (10:43)
[2022-09-24] MEDS: MORPHINE 2 MG/ML INJ IV ×2 (12:18→19:40)
[2022-09-24] MEDS: NOREPINEPHRINE BITARTRATE/D5W 4 MG/250 ML PLAST..BAG 30 MG IV (12:54)
--- NOTE | 2022-09-24 12:55 | PC.NURSE ---
Dr. Goyal prepping for Central access. Pressor started peripherally d/t critical nature of pt.
--- NOTE | 2022-09-24 13:48 | DI.RAD.S_ITS ---
PROCEDURE: XR CHEST 1V INDICATIONS: central line attempt TECHNIQUE: One view of the chest was acquired. COMPARISON: [facility], CR, XR CHEST 1V, 09/24/2022, 7:12. FINDINGS: Surgical changes and devices: None. Lungs and pleura: Lungs are mildly edematous. No pleural effusions or pneumothorax. Mediastinum: Mediastinal contours appear normal. Heart size is globally enlarged. Bones and chest wall: No suspicious bony lesions. Overlying soft tissues appear unremarkable. IMPRESSION: A central line is not seen, no pneumothorax is present. Global cardiomegaly and what appears to be mild acute exacerbation of chronic CHF. Dictated by: Dany Turner M.D. on 09/24/2022 at 14:14 Approved by: Dany Turner M.D. on 09/24/2022 at 14:15
--- NOTE | 2022-09-24 14:29 | DI.RAD.S_ITS ---
PROCEDURE: XR CHEST FOR PICC 1V INDICATIONS: line placement COMPARISON: [facility], RON, XR CHEST 1V, 09/24/2022, 13:47. [facility], RON, XR CHEST 1V, 09/24/2022, 7:12. FINDINGS: PICC was placed by the intravenous therapy team from the right side. Fluoroscopic spot film demonstrates the tip of PICC projecting to the area of the distal SVC. IMPRESSION: Tip of PICC projects to the area of the distal SVC. Dictated by: Dany Turner M.D. on 09/24/2022 at 15:00 Approved by: Dany Turner M.D. on 09/24/2022 at 15:00
[2022-09-24 15:18] LABS: BUN Creatinine Ratio 28.6 (6-22); Calcium 8.5 mg/dL (8.4-10.2); Carbon Dioxide 15 mmol/L (22-32); Chloride 106 mmol/L (98-107); Estimated Glomerular Filt Rate 11 mL/min (>60); Glucose 121 mg/dL (80-110); HEMOLYSIS < 15 (0-50); Potassium 5.4 mmol/L (3.4-5.1); Sodium 137 mmol/L (137-145)
[2022-09-24 15:20] LABS: Blood Urea Nitrogen 116 mg/dL (7-17)
--- NOTE | 2022-09-24 17:14 | PC.NURSE ---
ptt drawn to start heparin gtt, sent to lab. ptt pending ok to start drip
[2022-09-24] MEDS: HEPARIN 5,000 UNIT/ML VIAL 5000 UNIT IV (17:19)
[2022-09-24] MEDS: HEPARIN DRIP 25,000 UNIT/500 ML IV.SOLN 20 UNIT IV (17:21)
[2022-09-24 17:27] LABS: PTT Partial Thromboplastin Tim 31 SECONDS (26-36)
[2022-09-24] MEDS: NOREPINEPHRINE BITARTRATE/D5W 4 MG/250 ML PLAST..BAG 52.5 MG IV (18:47)
[2022-09-24] MEDS: LORazepam 2 MG/ML INJ 0.5 MG IV (19:40)
[2022-09-24 20:04] LABS: HCO3 ABG 14 mmol/L (23-27); PCO2 ABG 40.2 mmHg (35-45); PO2 ABG 143 mmHg (80-100); pH ABG 7.16 (7.35-7.45)
[2022-09-24 20:05] LABS: Fractionated Inspired Oxygen 50; Oxygen Saturation ABG 98 % (95-100); TCO2 ABG 16 mmol/L (23-27)
[2022-09-24] MEDS: cefTRIAXone 1,000 MG in SODIUM CHLORIDE 0.9% 100 ML 200 MG IV (20:10)
[2022-09-24] MEDS: SODIUM CHLORIDE 0.9% 500 ML 1000 ML IV (20:29)
[2022-09-24] MEDS: KETAMINE 500 MG/5 ML INJ 60 MG IV (21:20)
[2022-09-24] MEDS: ROCURONIUM 100 MG/10 ML VIAL 180 MG IV (21:23)
[2022-09-24] MEDS: AZITHROMYCIN 500 MG in DEXTROSE 5% IN WATER 250 ML 250 MG IV (21:50)
--- NOTE | 2022-09-24 21:54 | DI.RAD.S_ITS ---
PROCEDURE: XR CHEST 1V INDICATIONS: Post intubation TECHNIQUE: One view of the chest was acquired. COMPARISON: [facility], , XR CHEST FOR PICC 1V, 09/24/2022, 14:29. FINDINGS: Surgical changes and devices: There is a new endotracheal tube with the tip approximately 3.5 cm from the carmela. A new nasogastric tube is also present extending into the stomach with the tip not included on the current study. A right upper extremity PICC line is again noted with the tip projecting over the superior vena cava. Lungs and pleura: There are persistent bibasilar retrocardiac opacities consistent with consolidation or atelectasis. There is increased pulmonary edema. There are small bilateral pleural effusions. No definite pneumothorax. Mediastinum: Mediastinal contours are unchanged. Heart size is enlarged. Bones and chest wall: No suspicious bony lesions. Overlying soft tissues appear unremarkable. IMPRESSION: 1. New endotracheal tube tip approximately 3.5 cm from the carmela. Consider withdrawal by approximately 0.5 cm. 2. Persistent bibasilar retrocardiac consolidation or atelectasis. 3. Slightly increased pulmonary edema. 4. Small bilateral pleural effusions. Dictated by: Srinivasa Herrera M.D. on 09/24/2022 at 23:22 Approved by: Srinivasa Herrera M.D. on 09/24/2022 at 23:24
[2022-09-24] MEDS: MAGNESIUM SULFATE 2 GM/50 ML PIGGYBACK IV (22:30)
[2022-09-24 22:34] LABS: Fractionated Inspired Oxygen 100; HCO3 ABG 16 mmol/L (23-27); Oxygen Saturation ABG 99 % (95-100); PCO2 ABG 51.1 mmHg (35-45); PO2 ABG 191 mmHg (80-100); TCO2 ABG 18 mmol/L (23-27)
[2022-09-24 22:35] LABS: pH ABG 7.11 (7.35-7.45)
[2022-09-24] MEDS: DOPAMINE HCL IN DEXTROSE 5 % 400 MG/250 ML PLAST..BAG 21.262 MG IV (22:49)
[2022-09-24 22:53] LABS: Add Manual Diff / Slide Review YES; Hematocrit 47.2 % (36-46); Hemoglobin 14.6 g/dL (12.0-16.0); Mean Corpuscular HGB Conc 30.9 % (30-36); Platelet Count 138 X10^3/uL (150-400); Red Blood Cell Count 5.83 X10^6/uL (4.0-5.2); Red Cell Distribution Width 18.4 % (11.6-14.8); White Blood Cell Count 14.1 X10^3/uL (4.5-11.0)
[2022-09-24 22:55] LABS: Lactate (Lactic Acid) 1.3 mmol/L (0.7-2.1)
[2022-09-24 22:57] LABS: Alanine Aminotransferase 110 IU/L (<35); Albumin 4.1 g/dL (3.5-5.0); Albumin Globulin Ratio 1.6 (1.0-2.8); Alkaline Phosphatase 73 U/L (38-126); Aspartate Aminotransferase 113 IU/L (14-36); BUN Creatinine Ratio 28.1 (6-22); Calcium 8.2 mg/dL (8.4-10.2); Carbon Dioxide 13 mmol/L (22-32); Chloride 105 mmol/L (98-107); Creatine Kinase 93 U/L (30-135); Estimated Glomerular Filt Rate 11 mL/min (>60); Globulin 2.5 g/dL (1.7-4.1); Glucose 165 mg/dL (80-110); HEMOLYSIS 16 (0-50); Sodium 137 mmol/L (137-145); Total Protein 6.6 g/dL (6.3-8.2)
[2022-09-24 22:58] LABS: Potassium 5.4 mmol/L (3.4-5.1)
[2022-09-24 22:59] LABS: Blood Urea Nitrogen 114 mg/dL (7-17)
[2022-09-24 23:05] LABS: NT-proBNP (BNP-Adult 18+) 26500 pg/mL (<450)
[2022-09-24 23:14] LABS: Troponin I 0.909 ng/mL (0.01-0.034)
[2022-09-24 23:15] LABS: PTT Partial Thromboplastin Tim 130 SECONDS (26-36)
[2022-09-24 23:18] LABS: Neutrophils Absolute Manual 11985 /uL (3000-5900); Total Cells Counted 100
[2022-09-24 23:20] LABS: Polychromasia 1+
[2022-09-24] MEDS: propofoL 1,000 MG/100 ML VIAL 3.402 MG IV (23:52)
[2022-09-25] VITALS (31 sets, daily range): BP systolic 89–183; BP diastolic 52–93; PULSE 50–85; RESP 18–31; TEMP 36–36.3; O2SAT 86–95
--- NOTE | 2022-09-25 02:08 | PC.NURSE ---
Accepted @ [facility] [id number] Report [phone] ext [id number]
[2022-09-25] MEDS: ATROPINE 1 MG/10 ML SYRINGE 0.5 MG IV (02:20)
[2022-09-25 06:57] LABS: Acinetobacter baumannii Not Detected (Not Detect); Candida albicans Not Detected (Not Detect); Candida glabrata Not Detected (Not Detect); Candida krusei Not Detected (Not Detect); Candida parapsilosis Not Detected (Not Detect); Candida tropicalis Not Detected (Not Detect); E. coli Not Detected (Not Detect); Enterobacter cloacae complex Not Detected (Not Detect); Enterobacteriaceae species Not Detected (Not Detect); Enterococcus species Not Detected (Not Detect); Haemophilus influenzae Not Detected (Not Detect); Listeria monocytogenes Not Detected (Not Detect); Methicillin-resistant gene Not Detected (Not Detect); Neisseria meningitidis Not Detected (Not Detect); Proteus species Not Detected (Not Detect); Pseudomonas aeruginosa Not Detected (Not Detect); Serratia marcescens Not Detected (Not Detect); Staphylococcus species Detected (Not Detect); Streptococcus agalactiae (Gr B Not Detected (Not Detect); Streptococcus pneumonia Not Detected (Not Detect); Streptococcus pyogenes (Gr A) Not Detected (Not Detect); Streptococcus species Not Detected (Not Detect)
== END 2022-09-25 02:15 | disposition short-term general hospital (02) ==
PROVIDERS: Emergency Medicine; Emergency Provider Emergency Medicine
DX: I50.9 Heart failure, unspecified (principal); R57.0 Cardiogenic shock; N17.9 Acute kidney failure, unspecified; A41.9 Sepsis, unspecified organism; Z20.822 Contact with and (suspected) exposure to COVID-19; R00.1 Bradycardia, unspecified; N39.0 Urinary tract infection, site not specified; R74.8 Abnormal levels of other serum enzymes; I95.9 Hypotension, unspecified; E66.01 Morbid (severe) obesity due to excess calories; Z68.42 Body mass index [BMI] 45.0-49.9, adult
CPT/HCPCS: 36415; 36569; 36600; 71045; 80048; 80053; 81001; 82550; 82553; 82805; 83605; 83690; 83735; 83880; 84145; 84484; 85007; 85025; 85730; 87040; 87077; 87086; 87150; 87186; 87633; 93005; 94002; 94003; 94660; 94799; 96365; 96366; 96367; 96368; 96375; 96376; 99285; 99291; 99292; J0461; J0696; J1642; J1644; J1940; J2060; J2270; J2704; J3475